=== PATIENT | male | born 1955 | race Caucasian/White ===

== ENCOUNTER 2017-08-08 06:47 | Emergency (ER) | payer BC ==
[2017-08-08] MEDS ORDERED: HYDROmorphone 1 MG/ML Syringe IVPUSH ONE ×2 (07:00→09:03)
[2017-08-08] MEDS ORDERED: Metoclopramide 10 MG/2 ML SDV IVPUSH ONE (07:00)
[2017-08-08] MEDS ORDERED: Sodium Chloride 0.9% 1,000 ML IV SCH (07:00)
--- NOTE | 2017-08-08 07:03 | EDM.PDOC ---
ED HPI GENERAL MEDICAL PROBLEM - General Chief Complaint: Abdominal Pain Stated Complaint: SEVERE ABDOMINAL PAIN Time Seen by Provider: 08/08/17 06:56 Source of Information: Reports: Patient History Limitations: Reports: No Limitations - History of Present Illness INITIAL COMMENTS - FREE TEXT/NARRATIVE: 61-year-old male presents to the ED with sudden onset of severe left lower abdominal pain starting 2 hours ago. Patient was already up for the day. He developed pain in the sudden onset of need to have a bowel movement of which he did have a small bowel movement with no blood. Pain however progression intensity at point that he could hardly walk. He has vomited twice of small amount of bilious material. He shouldn't underwent a laparotomy with removal of a large portion of his descending colon for diverticulitis about 2 years ago. He had a temporary colostomy for 3 months which has been subsequently re-burst. He has abdominal wall hernias at the sites of previous colostomy. Pain is described as sharp and stabbing and strongly colicky. Does not radiate through to his back. No history of kidney stones. Patient reports initial surgery was carried out at [place] . The colostomy let down and reanastomosis was done by Dr. Hoffman at [facility] in [place]. Onset: Today Onset Date: 08/08/17 Onset Time: 05:00 Duration: Hour(s): Location: Reports: Abdomen (Left lower quadrant of the abdomen) Quality: Reports: Sharp, Stabbing, Other Severity: Severe (Strongly colicky colicky) Improves with: Reports: None ( 10 out of 10) Worsens with: Reports: None Context: Denies: Activity, Exercise, Lifting, Sick Contact, Trauma, Other Associated Symptoms: Reports: Nausea/Vomiting (Has vomited twice small amount of bilious material. No blood). Denies: Confusion, Chest Pain, Cough, cough w sputum, Diaphoresis, Fever/Chills, Headaches, Loss of Appetite, Malaise, Rash, Seizure, Shortness of Breath, Syncope Treatments CLIENT SERVICE CONSULTANT: Reports: Other (see below) (None.) Left Abdomen Pain Score (Numeric/FACES): 10 - Related Data Allergies Allergy/AdvReac Type Severity Reaction Status Date / Time No Known Allergies Allergy Verified 08/08/17 06:52 Home Meds: Home Meds Ibuprofen 400 mg PO ONCALL PRN 08/08/17 [History] Past Medical History - Past Surgical History GI Surgical History: Reports: Other (See Below) (Laparotomy for removal of section of his colon due to diverticulitis with temporary colostomy 2 years ago. 3 months later he has colostomy was reversed he has developed abdominal wall hernias postoperatively. They have not given him any problems up until today.) Social & Family History - Living Situation & Occupation Living situation: Reports: Occupation: Employed ED ROS GENERAL - Review of Systems Review Of Systems: See Below Constitutional: Reports: No Symptoms HEENT: Reports: No Symptoms Respiratory: Reports: No Symptoms Cardiovascular: Reports: No Symptoms Endocrine: Reports: No Symptoms GI/Abdominal: Reports: Abdominal Pain, Distension (See history of present illness), Nausea, Vomiting : Reports: No Symptoms Musculoskeletal: Reports: Back Pain Skin: Reports: No Symptoms Neurological: Reports: No Symptoms (Intermittent positive low back pain) Psychiatric: Reports: No Symptoms ED EXAM, GI/ABD - Physical Exam Exam: See Below Exam Limited By: Physical Impairment (In severe pain. Initially examined with him at the bedside on his knees.) General Appearance: Alert, Severe Distress Eyes: Bilateral: Normal Appearance Throat/Mouth: Normal Inspection, Normal Lips, Normal Oropharynx Head: Atraumatic, Normocephalic Neck: Normal Inspection, Supple, Non-Tender, Full Range of Motion Respiratory/Chest: No Respiratory Distress, Lungs Clear, Normal Breath Sounds, No Accessory Muscle Use Cardiovascular: Normal Peripheral Pulses, Regular Rate, Rhythm, No Edema, No Murmur GI/Abdominal Exam: Abnormal Bowel Sounds (Hyperactive bowel sounds particularly over the hernia in the left lower quadrant of the abdomen.), Hernia (Abdominal hernia left lower quadrant which is firm palpation. There is an area of irritation over the hernia that is bleeding like a scratch type wound. There is firm to palpation and clinically has an incarcerated hernia or bowel obstruction.) Back Exam: Normal Inspection, Full Range of Motion. No: CVA Tenderness (L), CVA Tenderness (R) Extremities: Normal Inspection, Normal Range of Motion, Non-Tender, No Pedal Edema Neurological: Alert, Oriented, CN II-XII Intact, Normal Cognition, Normal Gait Psychiatric: Normal Affect, Normal Mood Skin Exam: Warm, Dry, Intact, Normal Color, No Rash EKG INTERPRETATION EKG Date: 08/08/17 Time: 07:35 Rhythm: NSR Rate (Beats/Min): 60 [place]: Normal P-Wave: Present QRS: Other (Incomplete right bundle branch block. Q-wave present in aVL with T- wave inversion nonspecific finding) ST-T: Normal QT: Prolonged (Moderately prolonged) EKG Interpretation Comments: Abnormal ECG. Course - Vital Signs Last Recorded V/S: Last Vital Signs Temp 35.3 C 08/08/17 06:53 Pulse 66 08/08/17 06:53 Resp 16 08/08/17 06:53 BP 172/117 H 08/08/17 06:53 Pulse Ox 96 08/08/17 06:53 - Orders/Labs/Meds Orders: Active Orders 24 hr Category Date Time Status EKG Documentation Completion [RC] STAT Care 08/08/17 07:00 Active Abdomen 1V Flat [CR] Stat Exams 08/08/17 07:00 Taken Abdomen Pelvis w Cont [CT] Stat Exams 08/08/17 07:37 Taken KETONES,BLOOD [CHEM] Stat Lab 08/08/17 08:23 Received LACTIC ACID [CHEM] Stat Lab 08/08/17 08:23 Received URINALYSIS W/MICROSCOPIC [UA W/MICROSCOPIC] [URIN] Stat Lab 08/08/17 08:55 Ordered Sodium Chloride 0.9% [Normal Saline] 1,000 ml Med 08/08/17 07:00 Active IV ASDIRECTED Sodium Chloride 0.9% [Normal Saline] 100 ml Med 08/08/17 07:45 Active IV ASDIRECTED Sodium Chloride 0.9% [Saline Flush] Med 08/08/17 07:45 Active 10 ml FLUSH ONETIME PRN Medication Orders Sodium Chloride (Normal Saline) 1,000 mls @ 999 mls/hr IV ASDIRECTED CHACHA Last Admin: 08/08/17 07:33 Dose: 500 mls/hr Sodium Chloride (Normal Saline) 100 mls @ 80 mls/hr IV ASDIRECTED CHACHA Last Admin: 08/08/17 08:40 Dose: 80 mls/hr Sodium Chloride (Saline Flush) 10 ml FLUSH ONETIME PRN PRN Reason: IV FLUSH Last Admin: 08/08/17 08:40 Dose: 10 ml Labs: Laboratory Tests 08/08/17 08/08/17 08/08/17 Range/Units 07:00 07:00 07:00 WBC 6.33 (4.23-9.07) K/mm3 RBC 5.71 (4.63-6.08) M/mm3 Hgb 16.2 (13.7-17.5) gm/L Hct 46.8 (40.1-51.0) % MCV 82.0 (79.0-92.2) fl MCH 28.4 (25.7-32.2) pg MCHC 34.6 (32.2-35.5) g/dl RDW Std Deviation 40.4 (35.1-43.9) fL Plt Count 199 (163-337) K/mm3 MPV 9.1 L (9.4-12.3) fl Neutrophils % (Manual) 60 (40-60) % Band Neutrophils % 1 (0-10) % Lymphocytes % (Manual) 34 (20-40) % Atypical Lymphs % 0 % Monocytes % (Manual) 0 L (2-10) % Eosinophils % (Manual) 3 (0.8-7.0) % Basophils % (Manual) 2 H (0.2-1.2) Platelet Estimate Adequate RBC Morph Comment Normal PT 9.8 (8.0-13.0) SECONDS INR 0.90 Sodium 140 (136-145) mEq/L Potassium 4.2 (3.5-5.1) mEq/L Chloride 102 (98-107) mEq/L Carbon Dioxide 24 (21-32) mEq/L Anion Gap 18.2 H (5-15) BUN 26 H (7-18) mg/dL Creatinine 1.6 H (0.7-1.3) mg/dL Est Cr Clr Drug Dosing 47.26 mL/min Estimated GFR (MDRD) 44 (>60) mL/min BUN/Creatinine Ratio 16.3 (14-18) Glucose 157 H (80-115) mg/dL Calcium 9.4 (8.5-10.1) mg/dL Total Bilirubin 0.7 (0.2-1.0) mg/dL AST 34 (15-37) U/L ALT 41 (16-63) U/L Alkaline Phosphatase 50 (46-116) U/L C-Reactive Protein 1.8 H* (<1.0) mg/dL Total Protein 7.8 (6.4-8.2) g/dl Albumin 4.2 (3.4-5.0) g/dl Globulin 3.6 gm/dL Albumin/Globulin Ratio 1.2 (1-2) Amylase 32 (25-115) U/L Meds: Medications Generic Name Dose Route Start Last Admin Trade Name Freq PRN Reason Stop Dose Admin Sodium Chloride 1,000 mls @ 999 mls/hr 08/08/17 07:00 08/08/17 07:33 Normal Saline IV 500 mls/hr ASDIRECTED CHACHA Administration Sodium Chloride 100 mls @ 80 mls/hr 08/08/17 07:45 08/08/17 08:40 Normal Saline IV 80 mls/hr ASDIRECTED CHACHA Administration Sodium Chloride 10 ml 08/08/17 07:45 08/08/17 08:40 Saline Flush FLUSH 10 ml ONETIME PRN Administration IV FLUSH Discontinued Medications Generic Name Dose Route Start Last Admin Trade Name Freq PRN Reason Stop Dose Admin Diatrizoate Meglum/Diatrizoate Sod 120 ml 08/08/17 07:45 08/08/17 08:40 Gastrografin 37% PO 08/08/17 07:46 90 ml ONETIME ONE Administration Hydromorphone HCl 1 mg 08/08/17 07:00 08/08/17 07:07 Dilaudid IVPUSH 08/08/17 07:01 1 mg ONETIME ONE Administration Iopamidol 100 ml 08/08/17 07:45 08/08/17 08:40 Isovue-300 (61%) IVPUSH 08/08/17 07:46 100 ml ONETIME ONE Administration Metoclopramide HCl 10 mg 08/08/17 07:00 08/08/17 07:09 Reglan IVPUSH 08/08/17 07:01 10 mg ONETIME ONE Administration - Radiology Interpretation Free Text/Narrative:: 61-year-old male presents the ED with acute onset of severe left lower quadrant abdominal pain. Pain is at the site of previous surgical resection of colon due to diverticulosis 2 years ago. He had a temporary colostomy in this area which was closed 3 months later. Subsequently his develop abdominal wall hernias in this area. Medically he has a large baseball size mass which is very firm and indurated left lower quadrant compatible with incarcerated hernia or bowel obstruction in this area. Patient appreciates the hernia states he usually able to get bowel back in if it source to bulge out quite badly at times Plan normal saline at 500 mils per hour. Loud 1 mg IV with Reglan 10 mg IV. Routine labs to include an amylase and CRP. Legs as well. One view of the abdomen to be obtained. and an ECG. - Re-Assessments/Exams Free Text/Narrative Re-Assessment/Exam: 08/08/17 07:23 pain is much better rates it now as a 2 or 3 out of 10 and is now tolerable. 08/08/17 07:38 KUB reveals a positive air throughout the entire bowel. There is no obvious obstruction. Peers this most likely is incarceration of bowel or omentum within abdominal wall hernia. CT of the abdomen and pelvis will be performed with oral and IV contrast. 08/08/17 08:05 White count is 6.33 with 60% neutrophils and 1% bands. Hemoglobin is 16.2. Hematocrit of 46.8. Platelet count 199,000. PT is 9.8. INR 0.90. Sodium 140 potassium 4.2. Chloride 102 bicarbonate 24. And a gap is markedly elevated 18.2. B1 is 26. Creatinine is 1.6. Glucose is 157. Liver function normal C-reactive protein 1.8. Amylase normal at 32. Will order serum acute ketones and lactic acid levels. 08/08/17 08:11 patient states his pain is still about a colicky component but he rates it as a 2-3 out of 10 compared to what it was. He is still massaging the area to try and get the hernia to resolve. He is drinking is oral contrast at this time. 08/08/17 08:28 patient has vomited up most of his oral contrast that he has drank. He will therefore have CT done with limited oral contrast in the GI tract. Serum lactic acid was 1.7. 08/08/17 08:52 CT of the abdomen with limited oral contrast reveals 2 abdominal wall hernias. The largest is to the left of the umbilicus and contains a large portion of omentum appears to have a large neck. By history the patient has been able to reduce his hernia many times in the past. There is also a hernia through the abdominal wall to the right of the umbilicus that contains portions of small bowel. This area is not tender at this time. I'm unable to reduce the hernia due to the patient's pain. I think he could get better served by definitive surgical management. He would prefer to travel to [place] for Dr. Hoffman has worked on him in the past. I will therefore try and make appropriate arrangements for transfer. At this time patient would travel by private vehicle with his daughter taking him versus an ambulance. 08/08/17 09:11 Dr. sharif is the surgeon refrigeration installer at [facility] in [place] but she is scrubbed in to the OR. Therefore I was deferred to the ER and spoke with Dr. Lopez who is accepting care. Patient will therefore travel to the ER first to be assessed and then the surgeon can see him in consultation. Given another milligram of Dilaudid IV prior to discharge with Zofran 4 mg IV for nausea relief. Departure - Departure Time of Disposition: 09:12 Disposition: DC/Tfer to Acute Hospital 02 Condition: Fair Clinical Impression: Incisional hernia of anterior abdominal wall with obstruction - Discharge Information Referrals: PCP,Not In Area [Primary Care Provider] - Forms: ED Department Discharge Additional Instructions: Nothing t0 eat or drink. Travel to [facility] in [facility] to the emergency department where he will be seen by emergency room physician and surgeon refrigeration installer. - My Orders Last 24 Hours: My Active Orders 08/08/17 07:00 EKG Documentation Completion [RC] STAT Abdomen 1V Flat [CR] Stat Sodium Chloride 0.9% [Normal Saline] 1,000 ml IV ASDIRECTED 08/08/17 07:37 Abdomen Pelvis w Cont [CT] Stat 08/08/17 07:45 Sodium Chloride 0.9% [Normal Saline] 100 ml IV ASDIRECTED Sodium Chloride 0.9% [Saline Flush] 10 ml FLUSH ONETIME PRN 08/08/17 08:23 KETONES,BLOOD [CHEM] Stat LACTIC ACID [CHEM] Stat 08/08/17 08:55 URINALYSIS W/MICROSCOPIC [UA W/MICROSCOPIC] [URIN] Stat - Assessment/Plan Last 24 Hours: My Active Orders 08/08/17 07:00 EKG Documentation Completion [RC] STAT Abdomen 1V Flat [CR] Stat Sodium Chloride 0.9% [Normal Saline] 1,000 ml IV ASDIRECTED 08/08/17 07:37 Abdomen Pelvis w Cont [CT] Stat 08/08/17 07:45 Sodium Chloride 0.9% [Normal Saline] 100 ml IV ASDIRECTED Sodium Chloride 0.9% [Saline Flush] 10 ml FLUSH ONETIME PRN 08/08/17 08:23 KETONES,BLOOD [CHEM] Stat LACTIC ACID [CHEM] Stat 08/08/17 08:55 URINALYSIS W/MICROSCOPIC [UA W/MICROSCOPIC] [URIN] Stat
[2017-08-08] MEDS ORDERED: Sodium Chloride 0.9% 100 ML IV SCH (07:45)
[2017-08-08] MEDS ORDERED: Iopamidol 612 MG/ML 100 ML Bottle IVPUSH ONE (07:45)
[2017-08-08] MEDS ORDERED: Diatrizoate Meglumine/Diatrizoate Sodium 37% 120 ML Bottle PO ONE (07:45)
[2017-08-08] MEDS ORDERED: Sodium Chloride 0.9% 10 ML Syringe FLUSH PRN (07:45)
[2017-08-08] MEDS ORDERED: Ondansetron 4 MG/2 ML SDV IVPUSH ONE (09:03)
--- NOTE | 2017-08-08 10:01 | CT ---
CT abdomen and pelvis Technique: Multiple axial sections were obtained from above the dome of the diaphragm inferiorly through the pubic symphysis. Intravenous contrast was utilized. Oral contrast is seen within proximal bowel. Delayed images were also obtained from the mid kidneys inferiorly through the pubic symphysis. Comparison: No previous CT exam. Findings: Small portion of the visualized lung bases shows a small subpleural nodule within the right middle lobe. This small subpleural nodule measures about 5.5 mm in size. Liver shows no focal parenchymal abnormality other than a small low density finding within the inferior right lobe measuring 5 mm. This is too small to characterize by Hounsfield unit measurements. Small low density abnormality is noted within the inferior spleen measuring 7 mm. No additional abnormality is seen within the spleen. Adrenal glands show no nodule. Contrast noted within the distal esophagus raising the possibility of gastroesophageal reflux. Kidneys show symmetric contrast enhancement without hydronephrosis or mass. Delayed images shows contrast within the ureters and within the bladder with no ureteral dilatation. Aorta shows atherosclerotic change. Distal aorta shows an aneurysm with AP dimension of 3.7 cm. Left common iliac artery also is aneurysmal at 3.3 cm. Atherosclerotic change and intramural thrombus is seen within the aorta and iliac vessels. Distal right common iliac artery also contains an aneurysm measuring 3.0 cm. Incidental prostate calcification is seen. Fat-containing left inguinal hernia is noted. Left anterior abdominal wall hernia is seen. This contains loops of small bowel. Smaller hernia is seen to the right of midline at the same level containing a loop of small bowel. There is a small bowel dilatation being seen and one or both of these abdominal wall herniations may be causing mild obstruction. Distal small bowel appears normal in size. No free fluid or inflammatory change is noted. Bone window settings were reviewed which shows diffuse disc space narrowing and vacuum phenomena at the L2-3 through L5-S1 levels. Impression: 1. Anterior abdominal wall hernias to the right and left of midline. Several loops of small bowel appear mildly prominent in size and difficult to exclude one or both hernias causing mild small bowel obstruction. 2. Abdominal aortic aneurysm at 3.7 cm. Both common iliac arteries show aneurysmal dilatation at 3.3 cm on the left and 3.0 cm on the right. 3. Small low density finding within the liver and spleen which is felt to be incidental. 4. Mild gastroesophageal reflux. 5. Small subpleural nodule within the right lung base. Recommend noncontrast chest CT in 9 months to further evaluate for stability. This follow-up would occur in April,. Diagnostic code #3
--- NOTE | 2017-08-08 11:35 | CR ---
Abdomen: Supine view of the abdomen was obtained. Comparison: No prior abdominal x-ray. Bowel gas pattern appears normal. No abnormal calcifications are seen. Mild arterial calcification is seen within the pelvis. Slight degenerative change is noted within the spine. Impression: 1. Incidental findings. Diagnostic code #2
== END 2017-08-08 09:20 ==
LOC: JD.ED 06:47
DX: K43.0 Incisional hernia with obstruction, without gangrene (principal)
CPT/HCPCS: 36415; 74000; 74177; 80053; 81001; 82009; 82150; 83605; 85025; 85610; 86140; 93005; 96361; 96374; 96375; 96376; 99285; J1170; J2405; J2765; J7030; J7040; J7050; Q9963; Q9967; 93010

== ENCOUNTER 2018-11-22 10:59 | Emergency (ER) | payer MEDICARE, BC ==
[2018-11-22] MEDS ORDERED: Nitroglycerin/D5W 25 MG/250 ML BOTTLE ONE (11:30)
[2018-11-22] MEDS ORDERED: Aspirin 81 MG Tab.Chew PO STA (11:36)
[2018-11-22] MEDS ORDERED: Metoprolol Tartrate 5 MG/5 ML SDV IVPUSH ONE ×3 (11:37→13:15)
--- NOTE | 2018-11-22 11:39 | EDM.PDOC ---
ED HPI GENERAL MEDICAL PROBLEM - General Chief Complaint: Chest Pain Stated Complaint: CHEST PAIN Time Seen by Provider: 11/22/18 11:11 Source of Information: Reports: Patient, RN Notes Reviewed History Limitations: Reports: No Limitations - History of Present Illness INITIAL COMMENTS - FREE TEXT/NARRATIVE: The patient states that he developed cold symptoms, including rhinorrhea and a cough productive of clear sputum, in early October. He did not have a fever. He took DayQuil and Tylenol which may or may not have helped. The patient states that 2-3 weeks ago he developed dyspnea on exertion and bilateral neck discomfort radiating to his central chest, when walking upstairs or to his mailbox. He thought his symptoms were just worsening cold symptoms. He describes the discomfort as a pressure/tightness/ache, that came on gradually with exertion and resolved with rest, however, it has been progressively getting worse, with less exertion. He denies associated nausea or diaphoresis, but may have associated sense of impending doom. He states that his stepson is on supplemental oxygen, which he tried for about one hour yesterday, without any change in his symptoms. Today, the patient states that he was going to [facility] to get some nicotine patches, but couldn't get out of his car due to his symptoms, therefore he went to the walk-in clinic, and they sent him here. The patient states that he has had dyspnea on exertion in the past, but no neck or chest discomfort prior to 2-3 weeks ago. The patient states that he has not had a prior medical evaluation for this. He last saw his PCP 3-4 months ago. The patient smokes half a pack of cigarettes per day since 1968, down from 1 pack of cigarettes per day. Because of his current symptoms, he is considering quitting. The patient states that he has a history of hypertension, for which he takes losartan with hydrochlorothiazide and Norvasc. He also takes a baby aspirin daily, including this morning. The patient reports a AAA repair in 2018. He also underwent a hemicolectomy for diverticulitis in 2014. The patient's PCP is Dr. Sánchez. Chest Pain Score (Numeric/FACES): 6 - Related Data Allergies Allergy/AdvReac Type Severity Reaction Status Date / Time No Known Allergies Allergy Verified 11/22/18 11:11 Home Meds: Home Meds Aspirin [Ecotrin] 81 mg PO DAILY 11/22/18 [History] Losartan/Hydrochlorothiazide [Losartan-HCTZ 100-12.5 MG] 1 tab PO DAILY [History] amLODIPine [Norvasc] 5 mg PO DAILY 11/22/18 [History] Past Medical History HEENT History: Reports: Other (See Below) Other HEENT History: upper denture Cardiovascular History: Reports: High Cholesterol (untreated), Hypertension Gastrointestinal History: Reports: Diverticulosis (diverticulitis) Genitourinary History: Reports: BPH (untreated), Chronic Renal Insuffiency Musculoskeletal History: Reports: Back Pain, Chronic Endocrine/Metabolic History: Reports: Obesity/BMI 30+ - Infectious Disease History Infectious Disease History: Reports: Chicken Pox, Measles, Mumps - Past Surgical History HEENT Surgical History: Reports: Myringotomy w Tube(s) (left) Cardiovascular Surgical History: Reports: AAA Repair (graft, early 2017) GI Surgical History: Reports: Colon (Descending hemicolectomy for diverticulitis , 2014), Hernia, Abdominal (incisional, 2014) Musculoskeletal Surgical History: Reports: Carpal Tunnel (left) Social & Family History - Tobacco Use Smoking Status *Q: Current Every Day Smoker Years of Tobacco use: 50 Packs/Tins Daily: 0.5 Packs/Tins Daily Comment: Down from 1 ppd - Caffeine Use Caffeine Use: Reports: Soda - Alcohol Use Alcohol Use History: No - Recreational Drug Use Recreational Drug Use: No - Living Situation & Occupation Living situation: Reports: , with Spouse Occupation: Retired ED ROS GENERAL - Review of Systems Review Of Systems: ROS reveals no pertinent complaints other than HPI. ED EXAM, GENERAL - Physical Exam Exam: See Below Exam Limited By: No Limitations General Appearance: Alert, WD/WN, Mild Distress (Appears uncomfortable) Eye Exam: Bilateral Eye: EOMI, Normal Inspection Ears: Normal External Exam, Hearing Grossly Normal Nose: Normal Inspection Throat/Mouth: Normal Inspection, Normal Lips, Normal Voice, No Airway Compromise Head: Atraumatic, Normocephalic Neck: Normal Inspection, Full Range of Motion Respiratory/Chest: No Respiratory Distress, Lungs Clear, Normal Breath Sounds, No Accessory Muscle Use Cardiovascular: Normal Peripheral Pulses, Regular Rate, Rhythm, No Edema, No Gallop, No JVD, No Murmur, No Rub Peripheral Pulses: 4+: Radial (L), Radial (R) GI/Abdominal: Normal Bowel Sounds, Soft, Non-Tender, No Organomegaly, No Distention, No Abnormal Bruit, No Mass, Other (Obese) (Male) Exam: Deferred Rectal (Males) Exam: Deferred Back Exam: Normal Inspection, Full Range of Motion, NT Extremities: Normal Inspection, Normal Range of Motion, No Pedal Edema, Normal Capillary Refill Neurological: Alert, Oriented, Normal Cognition, No Motor/Sensory Deficits Psychiatric: Normal Affect Skin Exam: Warm, Dry, Intact, Normal Color, No Rash EKG INTERPRETATION EKG Date: 11/22/18 Time: 11:05 Rhythm: NSR (Single PVC) Rate (Beats/Min): 89 [place]: Normal P-Wave: Enlarged (likely biatrial) QRS: Normal (Early transition) ST-T: Normal QT: Prolonged (QTc 497 ms) Comparison: No Change (08/08/2017) Course - Vital Signs Last Recorded V/S: Last Vital Signs Temp 36.8 C 11/22/18 11:05 Pulse 95 11/22/18 13:29 Resp 22 H 11/22/18 11:05 BP 145/82 H 11/22/18 13:29 Pulse Ox 97 11/22/18 11:05 - Orders/Labs/Meds Orders: Active Orders 24 hr Category Date Time Status EKG Documentation Completion [RC] STAT Care 11/22/18 11:34 Active Heparin Sodium/D5W [Heparin 25,000 Units in D5W 500 ML] Med 11/22/18 12:00 Active 25,000 units in 500 ml IV TITRATE Nitroglycerin/D5W [Nitroglycerin 25 MG/D5W 250 ML] Med 11/22/18 11:45 Active 25 mg in 250 ml IV TITRATE Medication Orders Nitroglycerin/Dextrose (Nitroglycerin 25 Mg/D5w 250 Ml) 25 mg in 250 mls @ 3 mls/hr IV TITRATE CHACHA; Protocol Last Admin: 11/22/18 11:46 Dose: 5 mcg/min, 3 mls/hr Heparin Sodium/Dextrose (Heparin 25,000 Units In D5w 500 Ml) 25,000 units in 500 mls @ 22.32 mls/hr IV TITRATE CHACHA; Protocol Last Admin: 11/22/18 12:18 Dose: 12 units/kg/hr, 22.32 mls/hr Labs: Laboratory Tests 11/22/18 11/22/18 11/22/18 Range/Units 11:07 11:07 11:07 WBC 7.12 (4.23-9.07) K/mm3 RBC 5.48 (4.63-6.08) M/mm3 Hgb 15.7 (13.7-17.5) gm/L Hct 46.3 (40.1-51.0) % MCV 84.5 (79.0-92.2) fl MCH 28.6 (25.7-32.2) pg MCHC 33.9 (32.2-35.5) g/dl RDW Std Deviation 41.5 (35.1-43.9) fL Plt Count 257 (163-337) K/mm3 MPV 8.6 L (9.4-12.3) fl Neutrophils % (Manual) 51 (40-60) % Band Neutrophils % 0 (0-10) % Lymphocytes % (Manual) 36 (20-40) % Atypical Lymphs % 0 % Monocytes % (Manual) 6 (2-10) % Eosinophils % (Manual) 7 (0.8-7.0) % Basophils % (Manual) 0 L (0.2-1.2) Platelet Estimate Adequate RBC Morph Comment Normal PT 9.8 (9.5-12.1) SECONDS INR < 0.93 APTT 27 (24-31) SECONDS D-Dimer, Quantitative 1.89 H (0.19-0.50) mg/L Sodium 134 L (136-145) mEq/L Potassium 3.5 (3.5-5.1) mEq/L Chloride 96 L (98-107) mEq/L Carbon Dioxide 27 (21-32) mEq/L Anion Gap 14.5 (5-15) BUN 20 H (7-18) mg/dL Creatinine 2.0 H (0.7-1.3) mg/dL Est Cr Clr Drug Dosing TNP Estimated GFR (MDRD) 34 (>60) mL/min BUN/Creatinine Ratio 10.0 L (14-18) Glucose 124 H (80-115) mg/dL Calcium 9.3 (8.5-10.1) mg/dL Total Bilirubin 0.5 (0.2-1.0) mg/dL AST 19 (15-37) U/L ALT 25 (16-63) U/L Alkaline Phosphatase 62 (46-116) U/L Troponin I 0.147 H* (0.00-0.056) ng/mL NT-Pro-B Natriuret Pep (0-125) pg/mL Total Protein 8.3 H (6.4-8.2) g/dl Albumin 4.3 (3.4-5.0) g/dl Globulin 4.0 gm/dL Albumin/Globulin Ratio 1.1 (1-2) 11/22/18 Range/Units 11:07 WBC (4.23-9.07) K/mm3 RBC (4.63-6.08) M/mm3 Hgb (13.7-17.5) gm/L Hct (40.1-51.0) % MCV (79.0-92.2) fl MCH (25.7-32.2) pg MCHC (32.2-35.5) g/dl RDW Std Deviation (35.1-43.9) fL Plt Count (163-337) K/mm3 MPV (9.4-12.3) fl Neutrophils % (Manual) (40-60) % Band Neutrophils % (0-10) % Lymphocytes % (Manual) (20-40) % Atypical Lymphs % % Monocytes % (Manual) (2-10) % Eosinophils % (Manual) (0.8-7.0) % Basophils % (Manual) (0.2-1.2) Platelet Estimate RBC Morph Comment PT (9.5-12.1) SECONDS INR APTT (24-31) SECONDS D-Dimer, Quantitative (0.19-0.50) mg/L Sodium (136-145) mEq/L Potassium (3.5-5.1) mEq/L Chloride (98-107) mEq/L Carbon Dioxide (21-32) mEq/L Anion Gap (5-15) BUN (7-18) mg/dL Creatinine (0.7-1.3) mg/dL Est Cr Clr Drug Dosing Estimated GFR (MDRD) (>60) mL/min BUN/Creatinine Ratio (14-18) Glucose (80-115) mg/dL Calcium (8.5-10.1) mg/dL Total Bilirubin (0.2-1.0) mg/dL AST (15-37) U/L ALT (16-63) U/L Alkaline Phosphatase (46-116) U/L Troponin I (0.00-0.056) ng/mL NT-Pro-B Natriuret Pep 230 H (0-125) pg/mL Total Protein (6.4-8.2) g/dl Albumin (3.4-5.0) g/dl Globulin gm/dL Albumin/Globulin Ratio (1-2) Meds: Medications Generic Name Dose Route Start Last Admin Trade Name Freq PRN Reason Stop Dose Admin Nitroglycerin/Dextrose 25 mg in 250 mls @ 3 mls/hr 11/22/18 11:45 11/22/18 11 :46 Nitroglycerin 25 Mg/D5w 250 Ml IV 5 mcg/min TITRATE CHACHA 3 mls/hr Administration Protocol 5 MCG/MIN Heparin Sodium/Dextrose 25,000 units in 500 mls @ 22.32 mls/hr 11/22/18 12:00 11/22/18 12:18 Heparin 25,000 Units In D5w 500 Ml IV 12 units/kg/hr TITRATE CHACHA 22.32 mls/hr Administration Protocol 12 UNITS/KG/HR Discontinued Medications Generic Name Dose Route Start Last Admin Trade Name Freq PRN Reason Stop Dose Admin Aspirin 243 mg 11/22/18 11:36 11/22/18 11:41 Aspirin PO 11/22/18 11:37 243 mg ONETIME STA Administration Heparin Sodium (Porcine) Confirm 11/22/18 12:01 11/22/18 12:23 Heparin Sodium Administered 11/22/18 12:02 Not Given Dose 5,000 units .ROUTE .STK-MED ONE Heparin Sodium (Porcine) 4,000 units 11/22/18 12:15 11/22/18 12:17 Heparin Sodium IV 11/22/18 12:16 4,000 units ONETIME ONE Administration Nitroglycerin/Dextrose Confirm 11/22/18 11:30 11/22/18 11:46 Nitroglycerin 25 Mg/D5w 250 Ml Administered 11/22/18 11:31 Not Given Dose 25 mg in 250 mls @ as directed .ROUTE .STK-MED ONE Heparin Sodium/Dextrose Confirm 11/22/18 12:02 11/22/18 12:23 Heparin 25,000 Units In D5w 500 Ml Administered 11/22/18 12:03 Not Given Dose 500 mls @ as directed .ROUTE .STK-MED ONE Metoprolol Tartrate 5 mg 11/22/18 11:37 11/22/18 11:41 Lopressor IVPUSH 11/22/18 11:38 5 mg ONETIME ONE Administration Metoprolol Tartrate 5 mg 11/22/18 12:26 11/22/18 12:34 Lopressor IVPUSH 11/22/18 12:27 5 mg ONETIME ONE Administration Metoprolol Tartrate 5 mg 11/22/18 13:15 11/22/18 13:29 Lopressor IVPUSH 11/22/18 13:16 5 mg ONETIME ONE Administration Simvastatin 80 mg 11/22/18 11:40 Zocor PO 11/22/18 11:41 BEDTIME STA Simvastatin 40 mg 11/22/18 11:51 11/22/18 11:54 Zocor PO 11/22/18 11:52 40 mg ONETIME STA Administration - Re-Assessments/Exams Free Text/Narrative Re-Assessment/Exam: 11/22/18 11:37 Despite no ischemic changes in the patient's ECG, there is no question but that the patient's symptoms of bilateral neck pain radiating to his chest, along with dyspnea on exertion, is cardiac in etiology. I have ordered 5 mg of IV Lopressor, 243 mg of baby aspirin (the patient already took 81 mg this morning) , and 80 mg simvastatin. Because the patient is still suffering from some neck and chest discomfort at this time, I have ordered a nitroglycerin drip, to start at 5 mcg/min, that we can titrate. 11/22/18 11:55 Case discussed with Mary at [facility] at 11:43. Case then discussed with Dr. Alcantar, Licensed Practical Vocational Nurse at [facility], at 11:46. He agreed that the patient's symptoms are almost certainly anginal. He agreed with my orders for aspirin, Lopressor, and nitroglycerin, however, he recommended that I give only 40 mg of simvastatin. He recommended that I start a heparin drip. He did not want me to start Plavix. He recommended that the patient be admitted to the Hospitalist. Case then discussed with Dr. Lopez, Hospitalist at [facility], at 11: 52. He did not want to accept the patient to his service for knowing the troponin results. I am to call them back with that result. I have ordered heparin 4000 unit bolus, to be followed by 12 units/kg/hr gtt, per non-STEMI protocol. Portable chest radiograph reviewed. The cardiac silhouette is within normal limits. No pulmonary vascular congestion. No pleural effusions. No focal infiltrate. No pneumothorax. Formal read per the radiologist pending. Portable chest x-ray image pushed to [facility] at 11:55. 11/22/18 12:10 The patient's troponin returned elevated at 0.147. The patient's D-dimer returned elevated at 1.89, however, because the patient is already on a heparin drip, I am not going to pursue a pulmonary embolus at this time. The patient's CBC is unremarkable. The patient's CMP, coags, and BNP are still pending. Case discussed again with Mary at [facility] at 12:05. Case discussed again with Dr. Lopez at 12:05. He accepted the patient for transfer to telemetry. Given the elevated troponin, if Dr. Alcantar planned to take the patient to the [facility], I would fly him to [place], but if not, I would transfer by ground ambulance. Mary contacted Dr. Alcantar, who did not intend to take the patient to the [facility] immediately. I will therefore transfer the patient by ground ambulance. 11/22/18 12:48 The patient's CMP reveals a BUN/Cr of 20/2.0. His prior Cr, from 08/08/2017, was 1.6, indicating that he has chronic renal insufficiency. I have updated his PMHx. The patient's coags are within normal limits. His BNP is unremarkable. 11/22/18 13:05 Unfortunately, no ambulances are available to transport the patient, therefore the patient will have to go by helicopter. 11/22/18 13:16 The patient will be given a third dose of Lopressor 5 mg IVP prior to leaving the ED. Departure - Departure Time of Disposition: 12:10 Disposition: DC/Tfer to Acute Hospital 02 Reason for Transfer *Q: Other Condition: Fair Clinical Impression: Non-ST elevated myocardial infarction (non-STEMI), Elevated d-dimer, Chronic renal insufficiency Referrals: John Sánchez MD [Primary Care Provider] - Sudhakar Alcantar MD [Ordering Only Provider] - Forms: ED Department Discharge - My Orders Last 24 Hours: My Active Orders 11/22/18 11:34 EKG Documentation Completion [RC] STAT 11/22/18 11:45 Nitroglycerin/D5W [Nitroglycerin 25 MG/D5W 250 ML] 25 mg in 250 ml IV TITRATE 11/22/18 12:00 Heparin Sodium/D5W [Heparin 25,000 Units in D5W 500 ML] 25,000 units in 500 ml IV TITRATE - Assessment/Plan Last 24 Hours: My Active Orders 11/22/18 11:34 EKG Documentation Completion [RC] STAT 11/22/18 11:45 Nitroglycerin/D5W [Nitroglycerin 25 MG/D5W 250 ML] 25 mg in 250 ml IV TITRATE 11/22/18 12:00 Heparin Sodium/D5W [Heparin 25,000 Units in D5W 500 ML] 25,000 units in 500 ml IV TITRATE
[2018-11-22] MEDS ORDERED: Simvastatin 40 MG Tab PO STA ×2 (11:40→11:51)
[2018-11-22] MEDS ORDERED: Nitroglycerin/D5W 25 MG/250 ML BOTTLE IV SCH (11:45)
[2018-11-22] MEDS ORDERED: Heparin Sodium/D5W 25,000 UNITS/500 ML BAG IV SCH (12:00)
[2018-11-22] MEDS ORDERED: Heparin Sodium 5,000 Units/ML Vial ONE (12:01)
[2018-11-22] MEDS ORDERED: Heparin Sodium/D5W 500 ML ONE (12:02)
[2018-11-22] MEDS ORDERED: Heparin Sodium 5,000 Units/ML Vial IV ONE (12:15)
--- NOTE | 2018-11-22 12:34 | CR ---
Chest: Frontal view of the chest was obtained utilizing portable technique. Comparison: No prior chest x-ray. Heart size is normal. Tortuous thoracic aorta is seen. Very slight atelectasis or scarring within the left base is noted. Lungs otherwise are clear. Bony structures are grossly intact. Impression: 1. Incidental findings. Nothing acute is seen. Diagnostic code #2
== END 2018-11-22 14:00 ==
LOC: JD.ED 10:59
DX: I21.4 Non-ST elevation (NSTEMI) myocardial infarction (principal); R79.1 Abnormal coagulation profile; I12.9 Hypertensive chronic kidney disease with stage 1 through stage 4 chronic kidney disease, or unspecified chronic kidney disease; N18.9 Chronic kidney disease, unspecified; F17.210 Nicotine dependence, cigarettes, uncomplicated; Z79.82 Long term (current) use of aspirin; Z79.899 Other long term (current) drug therapy
CPT/HCPCS: 36415; 71045; 80053; 83880; 84484; 85007; 85027; 85379; 85610; 85730; 93005; 96365; 96366; 96368; 96374; 96375; 96376; 99285; A9270; J1644; J3490; 93010

== ENCOUNTER 2019-11-17 17:15 | Emergency (ER) | payer MEDICARE, BC ==
--- NOTE | 2019-11-17 18:13 | EDM.PDOC ---
ED HPI GENERAL MEDICAL PROBLEM - General Chief Complaint: Abdominal Pain Stated Complaint: SENT BY DR SÁNCHEZ Time Seen by Provider: 11/17/19 17:38 Source of Information: Reports: Patient, RN Notes Reviewed History Limitations: Reports: No Limitations - History of Present Illness INITIAL COMMENTS - FREE TEXT/NARRATIVE: Patient is a 64-year-old male who presents to the ED for the evaluation of his hernia. The patient was evaluated by his primary care provider, Dr. Sánchez, and he had an abdomen pelvis CT without IV contrast that demonstrated a possible incarcerated hernia. The patient states that he has had this hernia for quite some time, and it is normally reducible. He does not remember if Dr. Sánchez try to reduce the hernia at this point or not. CT report demonstrates multiple loops of small bowel in the left lower quadrant hernia, with mild stranding with the involved mesentery. Patient does have a history of an aortobiiliac stent graft, he thinks that this was done in the summer of 2017. He notes this was done by a provider at [facility] in [place]. Patient is hemodynamically stable at time of exam in triage, his blood work demonstrates only a mildly low potassium at 2.7 at this time. Patient states he is not having any sort of nausea or vomiting, he states he has not had much of an appetite for a while. He states that he last took Tylenol at around 12 PM, he did not eat anything today, he states his last meal was yesterday. Patient states that he can still have bowel movements, and his last bowel movement was this morning. Patient notes that the hernia itself is tender to touch but not overly painful. Abdomen Pain Score (Numeric/FACES): 3 - Related Data Allergies Allergy/AdvReac Type Severity Reaction Status Date / Time No Known Allergies Allergy Verified 11/17/19 17:40 Home Meds: Home Meds Aspirin [Ecotrin EC] 81 mg PO DAILY 11/22/18 [History] Chlorthalidone 25 mg PO DAILY 11/17/19 [History] Clopidogrel [Plavix] 75 mg PO DAILY 11/17/19 [History] Metoprolol Succinate [Toprol XL] 12.5 mg PO DAILY 11/17/19 [History] Nitroglycerin [Nitrostat] 0.4 mg SL ASDIRECTED PRN 11/17/19 [History] amLODIPine Besylate [Amlodipine Besylate] 10 mg PO DAILY 11/17/19 [History] atorvaSTATin [Lipitor] 40 mg PO BEDTIME 11/17/19 [History] traMADol [Ultram] 50 mg PO Q6H PRN #12 tab 11/17/19 [Rx] Past Medical History HEENT History: Reports: Other (See Below) Other HEENT History: upper denture Cardiovascular History: Reports: High Cholesterol, Hypertension Gastrointestinal History: Reports: Diverticulosis Genitourinary History: Reports: BPH, Chronic Renal Insuffiency Musculoskeletal History: Reports: Back Pain, Chronic Endocrine/Metabolic History: Reports: Obesity/BMI 30+ - Infectious Disease History Infectious Disease History: Reports: Chicken Pox, Measles, Mumps - Past Surgical History HEENT Surgical History: Reports: Myringotomy w Tube(s) Cardiovascular Surgical History: Reports: AAA Repair (Summer 2017) GI Surgical History: Reports: Colon, Hernia, Abdominal Musculoskeletal Surgical History: Reports: Carpal Tunnel Social & Family History - Tobacco Use Smoking Status *Q: Current Every Day Smoker Years of Tobacco use: 50 Packs/Tins Daily: 0.5 - Caffeine Use Caffeine Use: Reports: Soda - Recreational Drug Use Recreational Drug Use: No - Living Situation & Occupation Living situation: Reports: , with Spouse Occupation: Retired ED ROS GENERAL - Review of Systems Review Of Systems: See Below Constitutional: Denies: Fever, Chills Respiratory: Denies: Shortness of Breath, Cough Cardiovascular: Denies: Chest Pain GI/Abdominal: Reports: Abdominal Pain (Left lower abdomen over hernia), Flatus. Denies: Constipation, Diarrhea, Nausea, Vomiting ED EXAM, GI/ABD - Physical Exam Exam: See Below Exam Limited By: No Limitations General Appearance: Alert, WD/WN, No Apparent Distress Eyes: Bilateral: Normal Appearance Ears: Normal External Exam Nose: Normal Inspection Throat/Mouth: Normal Inspection, Normal Lips, Normal Teeth, Normal Gums, Normal Oropharynx, Normal Voice, No Airway Compromise Head: Atraumatic, Normocephalic Neck: Normal Inspection Respiratory/Chest: No Respiratory Distress, Lungs Clear, Normal Breath Sounds, No Accessory Muscle Use, Chest Non-Tender Cardiovascular: Normal Peripheral Pulses, Regular Rate, Rhythm, No Edema, No Murmur GI/Abdominal Exam: Normal Bowel Sounds, Soft, No Distention, No Mass, Hernia ( Left lower quadrant, the area is tender, but not overly painful) Extremities: Normal Inspection, Normal Capillary Refill Neurological: Alert, Oriented, Normal Cognition, No Motor/Sensory Deficits Psychiatric: Normal Affect, Normal Mood Skin Exam: Warm, Dry, Intact, Normal Color, No Rash EKG INTERPRETATION EKG Date: 11/17/19 Time: 19:40 Rhythm: NSR Rate (Beats/Min): 68 [place]: Normal P-Wave: Present QRS: RBBB ST-T: Normal QT: Normal Comparison: NA - No Prior EKG EKG Interpretation Comments: no acute ischemic change, reviewed by myself and Dr. Cabello. Course - Vital Signs Last Recorded V/S: Last Vital Signs Temp 99.1 F 11/17/19 17:37 Pulse 81 11/17/19 17:37 Resp 16 11/17/19 17:37 BP 176/102 H 11/17/19 17:37 Pulse Ox 95 11/17/19 17:37 - Orders/Labs/Meds Orders: Active Orders 24 hr Category Date Time Status EKG Documentation Completion [RC] STAT Care 11/17/19 18:48 Active Notify Provider Consults [RC] ASDIRECTED Care 11/17/19 18:13 Active Consult to Physician [CONS] Stat Cons 11/17/19 18:13 Active Chest 2V [CR] Stat Exams 11/17/19 18:48 Taken Meds: Medications Discontinued Medications Generic Name Dose Route Start Last Admin Trade Name Lissy PRN Reason Stop Dose Admin Potassium Chloride 40 meq 11/17/19 19:43 11/17/19 20:00 Klor-Con M20 PO 11/17/19 19:44 40 meq ONETIME ONE Administration Potassium Chloride 40 meq 11/17/19 19:43 11/17/19 20:00 Klor-Con M20 PO 11/17/19 19:44 40 meq ONETIME ONE Administration Tramadol HCl 50 mg 11/17/19 19:41 11/17/19 20:00 Ultram PO 11/17/19 19:42 50 mg ONETIME ONE Administration - Re-Assessments/Exams Free Text/Narrative Re-Assessment/Exam: 11/17/19 18:17 Patient presents to the ED for the evaluation of his hernia. I have called Dr. Marquez for evaluation. He will be in to see the patient and assess him to see if he would be a comfortable doing this at this facility versus sending him to [place] for repair. The patient himself would prefer to stay here if possible. 11/17/19 18:49 Dr. Marquez was in to evaluate the patient and will try to wait to do an outpatient repair next week, will have the patient hold his Plavix and aspirin. He did request that an EKG and Chest x-ray be obtained for pre-op purposes and did go over strict return precautions with the patient. 11/17/19 19:43 Review the patient's lab show that he was mildly hypokalemic at 2.7. 40 mEq potassium will be given orally in the ER, and another dose will be given to take at home tomorrow for further supplementation. Patient's chest x-ray is done and does not demonstrate any sort of consolidation or infiltrate, official radiology read is pending however. Patient was having a mild amount of abdominal pain after Dr. Marquez assessed him. He states that he gets pretty good relief from tramadol. I did order this for pain relief, and will give the patient a few tabs of this to take in case his pain is not relieved by Tylenol alone. Patient states he will try only to take Tylenol if at all possible, as he was given strict instructions by Dr. Marquez to not blunt the pain too much. Departure - Departure Time of Disposition: 19:00 Disposition: Home, Self-Care 01 Condition: Fair Clinical Impression: Abdominal wall hernia, Hypokalemia - Discharge Information *PRESCRIPTION DRUG MONITORING PROGRAM REVIEWED*: Yes *COPY OF PRESCRIPTION DRUG MONITORING REPORT IN PATIENT SANDEEP: No Prescriptions: traMADol [Ultram] 50 mg PO Q6H PRN #12 tab PRN Reason: Pain Instructions: Hernia, Adult, Hypokalemia, Potassium Content of Foods Referrals: John Sánchez MD [Primary Care Provider] - Forms: ED Department Discharge Additional Instructions: You were evaluated in the ER today regarding your abdominal hernia. Our surgeon, Dr. Lance Marquez was consulted on your case, and he did come up with a plan for you, you will likely have surgery next week. Your laboratory evaluation demonstrated that your potassium was mildly low, you were given 40 mEq p.o. in the ER, and another 40 mEq to take tomorrow morning for further supplementation. This should get back to normal, when you resume a normal diet. You were given an educational handout on the potassium content of foods, please try to include some of these in your diet to help get your potassium level back to normal. He wants you to hold your Plavix and aspirin, until he can get you scheduled for surgery. Please follow all of the recommendations set forth by Dr. Marquez, if you have any questions regarding such, you may call [phone] Marquez 's nurse. You may take 500-1000 mg Tylenol every 6 hours. Do not exceed 4000 mg Tylenol in a 24-hour time span. You were given a prescription for tramadol, please take 1 tablet as needed every 6 hours for pain not relieved by Tylenol alone. If you should need to take the tramadol, highly recommend you take a stool softener like MiraLAX on a daily basis to help prevent constipation. Please return to the ER at any time if symptoms change or worsen. Sepsis Event Note - Evaluation Sepsis Screening Result: No Definite Risk - Focused Exam Vital Signs: Vital Signs Temp Pulse Resp BP Pulse Ox 11/17/19 17:37 99.1 F 81 16 176/102 H 95 Date Exam was Performed: 11/17/19 Time Exam was Performed: 22:24 - My Orders Last 24 Hours: My Active Orders 11/17/19 18:13 Notify Provider Consults [RC] ASDIRECTED Consult to Physician [CONS] Stat 11/17/19 18:48 EKG Documentation Completion [RC] STAT Chest 2V [CR] Stat - Assessment/Plan Last 24 Hours: My Active Orders 11/17/19 18:13 Notify Provider Consults [RC] ASDIRECTED Consult to Physician [CONS] Stat 11/17/19 18:48 EKG Documentation Completion [RC] STAT Chest 2V [CR] Stat
--- NOTE | 2019-11-17 19:02 | PCM.CONS ---
H&P History of Present Illness - General Date of Service: 11/17/19 Source of Information: Patient History Limitations: Reports: No Limitations - History of Present Illness Onset of Symptoms: Reports: Gradual Location: Reports: Abdomen Other HPI/Comments: Mr. Vance is a 64 yo man presenting with an incarcerated incisional hernia at prior colostomy site. He has had the hernia for well over a year, and occasionally has associated pain but is usually able to manually reduce the hernia. He saw his primary doctor at [facility] today and was sent for CT imaging and surgical evaluation in the emergency department given concern for incarceration and possible strangulation. The patient rates his pain as mild and denies associated nausea, vomiting, or obstipation. He is a smoker, and has a history of perforated diverticulitis about 3 years ago for which he had a Ynes procedure and subsequent colostomy takedown in [place]. Two years ago, he underwent endovascular AAA repair. He has a history of angina and has had cardiac catheterization without stent placement; at the time, he was told he had complete occlusion of one coronary branch and about 60 % stenosis of another. He was started on aspirin and plavix, which he currently takes. He denies dyspnea or chest pain when walking up one flight of stairs or walking a distance of 100 yards. He was evaluated in the emergency room in 2017 for a strangulated right paramedian incisional hernia, for which he was flown to [place] for emergency surgical treatment. He reports mesh repair via his infraumbilical midline incision at that time. Abdomen Pain Score (Numeric/FACES): 3 - Related Data Allergies/Adverse Reactions: Allergies Allergy/AdvReac Type Severity Reaction Status Date / Time No Known Allergies Allergy Verified 11/17/19 17:40 Home Medications: Home Meds Aspirin [Ecotrin EC] 81 mg PO DAILY 11/22/18 [History] Chlorthalidone 25 mg PO DAILY 11/17/19 [History] Clopidogrel [Plavix] 75 mg PO DAILY 11/17/19 [History] Metoprolol Succinate [Toprol XL] 12.5 mg PO DAILY 11/17/19 [History] Nitroglycerin [Nitrostat] 0.4 mg SL ASDIRECTED PRN 11/17/19 [History] amLODIPine Besylate [Amlodipine Besylate] 10 mg PO DAILY 04/06/20 [History] atorvaSTATin [Lipitor] 40 mg PO BEDTIME 11/17/19 [History] Past Medical History HEENT History: Reports: Other (See Below) Other HEENT History: upper denture Cardiovascular History: Reports: High Cholesterol, Hypertension Gastrointestinal History: Reports: Diverticulosis Genitourinary History: Reports: BPH, Chronic Renal Insuffiency Musculoskeletal History: Reports: Back Pain, Chronic Endocrine/Metabolic History: Reports: Obesity/BMI 30+ - Infectious Disease History Infectious Disease History: Reports: Chicken Pox, Measles, Mumps - Past Surgical History HEENT Surgical History: Reports: Myringotomy w Tube(s) Cardiovascular Surgical History: Reports: AAA Repair (Summer 2017) GI Surgical History: Reports: Colon, Hernia, Abdominal Musculoskeletal Surgical History: Reports: Carpal Tunnel Social & Family History - Tobacco Use Smoking Status *Q: Current Every Day Smoker Years of Tobacco use: 50 Packs/Tins Daily: 0.5 - Caffeine Use Caffeine Use: Reports: Soda - Recreational Drug Use Recreational Drug Use: No - Living Situation & Occupation Living situation: Reports: , with Spouse Occupation: Retired H&P Review of Systems - Review of Systems: Review Of Systems: See Below General: Reports: Decreased Appetite HEENT: Reports: No Symptoms Pulmonary: Reports: Cough Cardiovascular: Reports: No Symptoms Gastrointestinal: Reports: Abdominal Pain, Other (LLQ incisional hernia) Genitourinary: Reports: No Symptoms Musculoskeletal: Reports: No Symptoms Skin: Reports: No Symptoms Psychiatric: Reports: No Symptoms Neurological: Reports: No Symptoms Hematologic/Lymphatic: Reports: Easy Bleeding Immunologic: Reports: No Symptoms Exam - Exam Exam: See Below - Vital Signs Vital Signs: Last Vital Signs Temp 37.3 C 11/17/19 17:37 Pulse 81 11/17/19 17:37 Resp 16 11/17/19 17:37 BP 176/102 H 11/17/19 17:37 Pulse Ox 95 11/17/19 17:37 Weight: 92.533 kg - Exam General: Alert, Oriented, Cooperative HEENT: Conjunctiva Clear Neck: Supple, Trachea Midline Lungs: Rales Cardiovascular: Regular Rate, Regular Rhythm GI/Abdominal Exam: Soft, Other (large left sided incisional hernia corresponding to prior colostomy site, minimally tender, partially reducible. Healed infraumbilical midline incision without evidence of hernia. ) Extremities: Normal Inspection Skin: Warm, Dry, Intact Neuro Extensive - Mental Status: Normal Mood/Affect Psychiatric: Alert, Normal Affect, Normal Mood Sepsis Event Note - Evaluation Sepsis Screening Result: No Definite Risk - Focused Exam Vital Signs: Vital Signs Temp Pulse Resp BP Pulse Ox 11/17/19 17:37 37.3 C 81 16 176/102 H 95 Date Exam was Performed: 11/17/19 Time Exam was Performed: 19:02 *Q Meaningful Use (ADM) - VTE Risk Assess *Q Each Risk Factor Represents 2 Points: Age 60 - 74 Years, Major surgery greater than 45 minutes Total Score 2 Point Risk Factors: 4 Consult PN Assessment/Plan Procedures: Procedures ASSAY OF AMYLASE (08/08/17) ASSAY OF LACTIC ACID (08/08/17) ASSAY OF NATRIURETIC PEPTIDE (11/22/18) ASSAY OF TROPONIN QUANT (11/22/18) BL SMEAR W/DIFF WBC COUNT (11/22/18) C-REACTIVE PROTEIN (08/08/17) COMPLETE CBC AUTOMATED (11/22/18) COMPLETE CBC W/AUTO DIFF WBC (08/08/17) COMPREHEN METABOLIC PANEL (11/22/18) CT ABD & PELV W/CONTRAST (08/08/17) ELECTROCARDIOGRAM TRACING (11/22/18) EMERGENCY DEPT VISIT (11/22/18) FIBRIN DEGRADATION QUANT (11/22/18) HYDRATE IV INFUSION ADD-ON (08/08/17) PROTHROMBIN TIME (11/22/18) ROUTINE VENIPUNCTURE (11/22/18) TEST FOR ACETONE/KETONES (08/08/17) THER/DIAG CONCURRENT INF (11/22/18) THER/PROPH/DIAG INJ IV PUSH (11/22/18) THER/PROPH/DIAG IV INF ADDON (11/22/18) THER/PROPH/DIAG IV INF INIT (11/22/18) THROMBOPLASTIN TIME PARTIAL (11/22/18) TX/PRO/DX INJ NEW DRUG ADDON (11/22/18) TX/PRO/DX INJ SAME DRUG STEM LEAD FORMER (11/22/18) URINALYSIS AUTO W/SCOPE (08/08/17) X-RAY EXAM CHEST 1 VIEW (11/22/18) X-RAY EXAM OF ABDOMEN (08/08/17) Problem List Initiated/Reviewed/Updated: Yes Plan: Incarcerated incisional hernia without evidence of strangulation or obstruction. Urgent repair is warranted, though the patient has modifiable risk factors including dual antiplatelet therapy and tobacco use. We will tentatively plan for open hernia repair with mesh one week from tomorrow , 11/25/2019. He will hold his plavix and aspirin starting now, and will make an attempt to quit smoking. If the patient develops symptoms of strangulation or obstruction he will return to the hospital for emergent re-evaluation. Plan for EKG and CXR today while in the emergency room. Requesting Provider: sheba Consult Requested: 11/17/19 Reason for Consult: incisional hernia Patient History Reviewed: Yes Admission H&P Reviewed: Yes Notified Requestor: Yes Time Spent (in minutes): 45
[2019-11-17] MEDS ORDERED: traMADol 50 MG Tab PO ONE (19:41)
[2019-11-17] MEDS ORDERED: Potassium Chloride 20 MEQ Tab.ER PO ONE ×2 (19:43)
--- NOTE | 2019-11-18 08:37 | CR ---
Chest: 2 views of the chest were obtained. Comparison: Prior chest x-ray of 11/22/18. Heart size is normal. Tortuous thoracic aorta is seen. Lungs are clear with no acute parenchymal change. Mild scattered degenerative change is noted within the spine. Vascular calcification is noted within the visualized upper abdominal aorta. Impression: 1. Nothing acute is appreciated on 2 view chest x-ray. Diagnostic code #2 This report was dictated in MDT
== END 2019-11-17 20:20 | disposition home or self-care (01) ==
LOC: JD.ED 17:15
DX: K43.9 Ventral hernia without obstruction or gangrene (principal); E87.6 Hypokalemia; E78.00 Pure hypercholesterolemia, unspecified; I10 Essential (primary) hypertension; E66.9 Obesity, unspecified; Z68.30 Body mass index [BMI] 30.0-30.9, adult; Z79.82 Long term (current) use of aspirin; Z79.02 Long term (current) use of antithrombotics/antiplatelets; Z79.899 Other long term (current) drug therapy
CPT/HCPCS: 71046; 93005; 99284; A9270; 93010

== ENCOUNTER 2019-11-21 04:19 | Inpatient (IN) | payer MEDICARE, BC ==
[2019-11-21] MEDS ORDERED: Ondansetron 4 MG/2 ML SDV IVPUSH ONE (04:49)
[2019-11-21] MEDS ORDERED: HYDROmorphone 1 MG/ML Syringe IVPUSH STA (04:49)
--- NOTE | 2019-11-21 04:59 | EDM.PDOC ---
ED HPI GENERAL MEDICAL PROBLEM - General Chief Complaint: Abdominal Pain Stated Complaint: HERNIA-SURGERY SCHEDULED IN EXTREME PAIN Time Seen by Provider: 11/21/19 04:39 Source of Information: Reports: Patient History Limitations: Reports: No Limitations - History of Present Illness INITIAL COMMENTS - FREE TEXT/NARRATIVE: Mr. Vance is a very pleasant 64-year-old man with a past medical history significant for diverticulitis, status post a descending hemicolectomy in 2014, followed by an incisional herniorrhaphy, also in 2014, and a AAA, status post a njqex-iw-[id number] graft in 2018, who subsequently developed a left lower quadrant abdominal hernia. He was seen in this ED on 11/17/2019 after undergoing an outpatient CT scan of the abdomen and pelvis without contrast, which indicated that the hernia was incarcerated. He was evaluated by the Surgeon here in the ED, who did not feel that emergency surgery was indicated. He had the patient hold his aspirin and Plavix, and reparative surgery has been scheduled for this coming 11/25/2019. The patient was discharged home with a prescription for tramadol. The patient now returns to the ED stating that the pain that he has been experiencing in his left lower quadrant since October has been progressively getting worse, especially tonight. It is made worse if he coughs. He started having nausea and vomiting on 11/19/2019, and he has not had a bowel movement since 11/18/2019. His oral intake has been small. No recent fever. He has had a slight cough for the past 2 to 3 weeks. The patient denies recent chills, sore throat, ear pain, nasal or sinus congestion, dyspnea, chest pain, palpitations, constipation, diarrhea, urinary symptoms, recent weight gain or weight loss, recent bloody bowel movements or black bowel movements, recent joint aches, headaches, or rashes. The last time the patient took his aspirin or Plavix was Sunday morning, 2019. He last ate some crackers around noon yesterday, , 11/20/2019. Here in the ED, the patient is found to be mildly hypertensive at 152/92, otherwise, he is hemodynamically stable, afebrile, saturating 93% on room air. The patient's PCP is Dr. John Sánchez. His Surgeon is Dr. Lance Marquez. He received an influenza vaccine this season. Abdomen Pain Score (Numeric/FACES): 10 - Related Data Allergies Allergy/AdvReac Type Severity Reaction Status Date / Time No Known Allergies Allergy Verified 11/21/19 04:35 Home Meds: Home Meds Aspirin [Ecotrin EC] 81 mg PO DAILY 11/22/18 [History] Chlorthalidone 25 mg PO DAILY 11/17/19 [History] Clopidogrel [Plavix] 75 mg PO DAILY 11/17/19 [History] Metoprolol Succinate [Toprol XL] 12.5 mg PO DAILY 11/17/19 [History] Nitroglycerin [Nitrostat] 0.4 mg SL ASDIRECTED PRN 11/17/19 [History] amLODIPine Besylate [Amlodipine Besylate] 10 mg PO DAILY 11/17/19 [History] atorvaSTATin [Lipitor] 40 mg PO BEDTIME 11/17/19 [History] traMADol [Ultram] 50 mg PO Q6H PRN #15 tab 11/20/19 [Rx] Past Medical History Cardiovascular History: Reports: Aneurysm (AAA, s/p [id number] graft), High Cholesterol, Hypertension Gastrointestinal History: Reports: Diverticulosis (diverticulitis, s/p descending hemicolectomy) Genitourinary History: Reports: BPH (untreated), Chronic Renal Insuffiency Endocrine/Metabolic History: Reports: Obesity/BMI 30+ - Infectious Disease History Infectious Disease History: Reports: Chicken Pox, Measles, Mumps - Past Surgical History HEENT Surgical History: Reports: Myringotomy w Tube(s) (left), Oral Surgery ( upper dental extractions for dentures) Cardiovascular Surgical History: Reports: AAA Repair ([id number]-[id number] graft [address] [facility]) GI Surgical History: Reports: Colon (descending hemicolectomy for diverticulitis 2014), Hernia, Abdominal (incisional, 2015) Musculoskeletal Surgical History: Reports: Carpal Tunnel (left only) Social & Family History - Tobacco Use Smoking Status *Q: Current Every Day Smoker Years of Tobacco use: 51 Packs/Tins Daily: 0.3 Packs/Tins Daily Comment: Down from 1 ppd - Caffeine Use Caffeine Use: Reports: None - Alcohol Use Alcohol Use History: No - Recreational Drug Use Recreational Drug Use: No - Living Situation & Occupation Living situation: Reports: , with Spouse, with Family (2 adult kids) Occupation: Retired ED ROS GENERAL - Review of Systems Review Of Systems: Comprehensive ROS is negative, except as noted in HPI. Musculoskeletal: Reports: Back Pain (chronic) ED EXAM, GI/ABD - Physical Exam Exam: See Below Exam Limited By: No Limitations General Appearance: Alert, WD/WN, No Apparent Distress (Appears uncomfortable, especially when supine. Vomited once.) Eyes: Bilateral: Normal Appearance, EOMI Ears: Normal External Exam, Hearing Grossly Normal Nose: Normal Inspection Throat/Mouth: Normal Inspection, Normal Lips, Normal Voice, No Airway Compromise Head: Atraumatic, Normocephalic Neck: Normal Inspection, Full Range of Motion Respiratory/Chest: No Respiratory Distress, Lungs Clear, Normal Breath Sounds, No Accessory Muscle Use Cardiovascular: Normal Peripheral Pulses, Regular Rate, Rhythm, No Edema, No Gallop, No JVD, No Murmur, No Rub GI/Abdominal Exam: Normal Bowel Sounds (active), Soft, No Organomegaly, No Distention, No Abnormal Bruit, No Mass, Tender (to LLQ hernia; unable to apply much pressure to try to reduce due to tenderness), Hernia (protuberant left lower quadrant) (Male) Exam: Deferred Rectal (Males) Exam: Deferred Back Exam: Normal Inspection, Full Range of Motion, NT Extremities: Normal Inspection, Normal Range of Motion, No Pedal Edema, Normal Capillary Refill Neurological: Alert, Oriented, Normal Cognition, No Motor/Sensory Deficits Psychiatric: Normal Affect Skin Exam: Warm, Dry, Intact, Normal Color, No Rash Course - Vital Signs Last Recorded V/S: Last Vital Signs Temp 36.1 C 11/21/19 04:31 Pulse 91 11/21/19 04:31 Resp 20 11/21/19 04:31 BP 152/92 H 11/21/19 04:31 Pulse Ox 93 L 11/21/19 04:31 - Orders/Labs/Meds Orders: Active Orders 24 hr Category Date Time Status Abdomen Pelvis w Cont [CT] Stat Exams 11/21/19 04:49 Taken Chest 2V [CR] Stat Exams 11/21/19 04:51 Ordered Lactated Ringers [Ringers, Lactated] 1,000 ml Med 11/21/19 06:00 Active IV ASDIRECTED Potassium Chloride [KCl 10 MEQ in Water 100 ML] 10 meq Med 11/21/19 06:00 Active Premix Bag 1 bag IV Q1H Medication Orders Lactated Ringer's (Ringers, Lactated) 1,000 mls @ 150 mls/hr IV ASDIRECTED CHACHA Last Admin: 11/21/19 06:21 Dose: 150 mls/hr Potassium Chloride 10 meq/ (Premix) 100 mls @ 100 mls/hr IV Q1H CHACHA Stop: 11/21/19 11:59 Last Admin: 11/21/19 06:21 Dose: 100 mls/hr Labs: Laboratory Tests 11/21/19 11/21/19 11/21/19 Range/Units 05:00 05:00 05:00 WBC 8.08 (4.23-9.07) K/mm3 RBC 5.42 (4.63-6.08) M/mm3 Hgb 15.8 (13.7-17.5) gm/dl Hct 43.5 (40.1-51.0) % MCV 80.3 D (79.0-92.2) fl MCH 29.2 (25.7-32.2) pg MCHC 36.3 H (32.2-35.5) g/dl RDW Std Deviation 35.8 (35.1-43.9) fL Plt Count 220 (163-337) K/mm3 MPV 8.1 L (9.4-12.3) fl Neutrophils % (Manual) 80 H (40-60) % Band Neutrophils % 0 (0-10) % Lymphocytes % (Manual) 14 L (20-40) % Atypical Lymphs % 0 % Monocytes % (Manual) 3 (2-10) % Eosinophils % (Manual) 2 (0.8-7.0) % Basophils % (Manual) 1 (0.2-1.2) Platelet Estimate Adequate RBC Morph Comment Normal Sodium 126 L (136-145) mEq/L Potassium 2.6 L (3.5-5.1) mEq/L Chloride 86 L (98-107) mEq/L Carbon Dioxide 29 (21-32) mEq/L Anion Gap 13.6 (5-15) BUN 18 (7-18) mg/dL Creatinine 1.5 H (0.7-1.3) mg/dL Est Cr Clr Drug Dosing 48.44 mL/min Estimated GFR (MDRD) 47 (>60) mL/min BUN/Creatinine Ratio 12.0 L (14-18) Glucose 148 H (80-115) mg/dL Lactic Acid (0.4-2.0) mmol/L Calcium 9.4 (8.5-10.1) mg/dL Ferritin 270 (26-388) ng/ml Total Bilirubin 1.2 H (0.2-1.0) mg/dL AST 28 (15-37) U/L ALT 27 (16-63) U/L Alkaline Phosphatase 57 (46-116) U/L Lactate Dehydrogenase 164 (85-227) U/L C-Reactive Protein 2.7 H* (<1.0) mg/dL Total Protein 7.7 (6.4-8.2) g/dl Albumin 4.3 (3.4-5.0) g/dl Globulin 3.4 gm/dL Albumin/Globulin Ratio 1.3 (1-2) 11/21/19 Range/Units 05:00 WBC (4.23-9.07) K/mm3 RBC (4.63-6.08) M/mm3 Hgb (13.7-17.5) gm/dl Hct (40.1-51.0) % MCV (79.0-92.2) fl MCH (25.7-32.2) pg MCHC (32.2-35.5) g/dl RDW Std Deviation (35.1-43.9) fL Plt Count (163-337) K/mm3 MPV (9.4-12.3) fl Neutrophils % (Manual) (40-60) % Band Neutrophils % (0-10) % Lymphocytes % (Manual) (20-40) % Atypical Lymphs % % Monocytes % (Manual) (2-10) % Eosinophils % (Manual) (0.8-7.0) % Basophils % (Manual) (0.2-1.2) Platelet Estimate RBC Morph Comment Sodium (136-145) mEq/L Potassium (3.5-5.1) mEq/L Chloride (98-107) mEq/L Carbon Dioxide (21-32) mEq/L Anion Gap (5-15) BUN (7-18) mg/dL Creatinine (0.7-1.3) mg/dL Est Cr Clr Drug Dosing mL/min Estimated GFR (MDRD) (>60) mL/min BUN/Creatinine Ratio (14-18) Glucose (80-115) mg/dL Lactic Acid 1.5 (0.4-2.0) mmol/L Calcium (8.5-10.1) mg/dL Ferritin (26-388) ng/ml Total Bilirubin (0.2-1.0) mg/dL AST (15-37) U/L ALT (16-63) U/L Alkaline Phosphatase (46-116) U/L Lactate Dehydrogenase (85-227) U/L C-Reactive Protein (<1.0) mg/dL Total Protein (6.4-8.2) g/dl Albumin (3.4-5.0) g/dl Globulin gm/dL Albumin/Globulin Ratio (1-2) Meds: Medications Generic Name Dose Route Start Last Admin Trade Name Freq PRN Reason Stop Dose Admin Lactated Ringer's 1,000 mls @ 150 mls/hr 11/21/19 06:00 11/21/19 06:21 Ringers, Lactated IV 150 mls/hr ASDIRECTED CHACHA Administration Potassium Chloride 10 meq/ 100 mls @ 100 mls/hr 11/21/19 06:00 11/21/19 06:21 Premix IV 11/21/19 11:59 100 mls/hr Q1H CHACHA Administration Discontinued Medications Generic Name Dose Route Start Last Admin Trade Name Freq PRN Reason Stop Dose Admin Hydromorphone HCl 1 mg 11/21/19 04:49 11/21/19 05:00 Dilaudid IVPUSH 11/21/19 04:50 1 mg ONETIME STA Administration Sodium Chloride 1,000 mls @ 150 mls/hr 11/21/19 05:00 11/21/19 04:59 Normal Saline IV 150 mls/hr ASDIRECTED CHACHA Administration Ondansetron HCl 4 mg 11/21/19 04:49 11/21/19 04:59 Zofran IVPUSH 11/21/19 04:50 4 mg ONETIME ONE Administration - Re-Assessments/Exams Free Text/Narrative Re-Assessment/Exam: 11/21/19 04:52 I am concerned that the patient's left lower quadrant abdominal hernia has become incarcerated. I attempted to reduce it, but it is too tender to be able to put much pressure on it. The patient states that he has not had a bowel movement since Sunday, and he is vomiting, indicating a bowel obstruction. I have therefore ordered a CT of the abdomen and pelvis with oral and IV contrast , along with blood work. Additionally, because of the patient's complaint of a cough, I ordered a chest x-ray. In the meantime, the patient will be given IV Dilaudid, IV Zofran, and IV fluid. 11/21/19 05:51 The patient's CBC is unremarkable. His CMP is remarkable for a sodium depressed at 126, potassium depressed at 2.6 , chloride depressed at 86. His Cr is elevated at 1.5, with a BUN normal at 18. His blood glucose is elevated at 148. His TBil is slightly elevated at 1.2 , with the remainder of his CMP being unremarkable. His lactic acid level is within normal limits at 1.5. His LDH is within normal limits at 164. His ferritin is within normal limits at 270. His CRP is mildly elevated at 2.7. 11/21/19 07:02 Two-view chest radiograph appears to be grossly normal. The cardiac silhouette is within normal limits. No pulmonary vascular congestion. No pleural effusions. No focal infiltrate. No pneumothorax. Formal read per the Radiologist pending. CT of the abdomen and pelvis with oral and IV contrast as read by Dr. Barnes as: 1. Atrophy of the right kidney which is an interval change from prior exam. 2. Left anterior abdominal wall hernia containing a loop of small bowel. No findings of incarceration are seen at this time. Slight dilatation of proximal small bowel is noted and minimal partial obstruction is present, no other findings of incarceration are seen. 3. Diastases of the anterior rectus muscle with bulging of the bowel into this structure which appears stable. 4. Other findings as noted above which are felt to be stable and incidental. 11/21/19 07:10 With the exception of the mildly elevated CRP, none of today's tests suggest that the patient is suffering from COVID-19. Case discussed with Dr. Marquez at 07:07. He agreed that the hernia needs to be repaired, but stated that the patient was supposed undergo an outpatient cardiac stress test and echocardiogram yesterday, however, he did not follow his instructions and remain n.p.o., therefore the tests were not able to be done. He will come to the ED shortly to evaluate the patient and likely place him into observation to correct the electrolyte abnormalities. Departure - Departure Time of Disposition: 07:11 Disposition: Refer to Observation Condition: Good Clinical Impression: Abdominal hernia, Hyponatremia, Hypokalemia - Discharge Information *PRESCRIPTION DRUG MONITORING PROGRAM REVIEWED*: Not Applicable *COPY OF PRESCRIPTION DRUG MONITORING REPORT IN PATIENT SANDEEP: Not Applicable Referrals: John Sánchez MD [Primary Care Provider] - Lance Marquez MD [Physician] - Forms: ED Department Discharge Sepsis Event Note - Evaluation Sepsis Screening Result: No Definite Risk - Focused Exam Vital Signs: Vital Signs Temp Pulse Resp BP Pulse Ox 11/21/19 04:31 36.1 C 91 20 152/92 H 93 L Date Exam was Performed: 11/21/19 Time Exam was Performed: 06:59 - My Orders Last 24 Hours: My Active Orders 11/21/19 04:49 Abdomen Pelvis w Cont [CT] Stat 11/21/19 04:51 Chest 2V [CR] Stat 11/21/19 06:00 Lactated Ringers [Ringers, Lactated] 1,000 ml IV ASDIRECTED Potassium Chloride [KCl 10 MEQ in Water 100 ML] 10 meq Premix Bag 1 bag IV Q1H - Assessment/Plan Last 24 Hours: My Active Orders 11/21/19 04:49 Abdomen Pelvis w Cont [CT] Stat 11/21/19 04:51 Chest 2V [CR] Stat 11/21/19 06:00 Lactated Ringers [Ringers, Lactated] 1,000 ml IV ASDIRECTED Potassium Chloride [KCl 10 MEQ in Water 100 ML] 10 meq Premix Bag 1 bag IV Q1H
[2019-11-21] MEDS ORDERED: Sodium Chloride 0.9% 1,000 ML IV SCH (05:00)
[2019-11-21] MEDS ORDERED: Lactated Ringers 1,000 ML IV SCH (06:00)
[2019-11-21] MEDS: Potassium Chloride 10 MEQ in Premix Bag 1 BAG IV SCH ×5 (06:21→17:15)
--- NOTE | 2019-11-21 06:59 | CT ---
CT abdomen and pelvis Technique: Multiple axial sections were obtained from above the dome of the diaphragm inferiorly through the pubic symphysis. Intravenous contrast and oral contrast has been given. Delayed images were obtained through the pelvis. Comparison: Previous CT abdomen and pelvis exam of 08/08/17. Findings: 2 small nodules noted within the right middle lobe which appears stable from previous exam and most likely are due to noncalcified granulomas. Low-density area is seen next to the ligamentum teres fissure believed to represent a small amount of incidental fat. 2 small low-density findings noted within the right lobe of the liver which remain stable from prior exams and most likely represent small cysts. Larger abnormality seen within the left lobe of the liver which is also stable and measures about 1.1 cm in size most likely representing a small cyst. Small low-density finding within the inferior spleen which is also stable. Right kidney shows atrophy which is an interval change from prior exam. Left kidney appears within normal limits. Graft is within an abdominal aortic aneurysm. Graft continues into the iliac arteries. Left anterior abdominal wall hernia is noted which contains small bowel. This finding is fairly stable from previous exam. There is bulging next to this hernia within the anterior abdominal wall compatible with diastases of the rectus sheath. Midline surgical scar also appears to be present. Bowel proximal to this area is minimally prominent in size and minimal obstruction is possible. No pelvic mass or adenopathy is seen. No free fluid is seen. Appendix is not visualized with certainty. Delayed images shows contrast excretion from the left kidney with contrast is seen within the bladder. Impression: 1. Atrophy of the right kidney which is an interval change from prior exam. 2. Left anterior abdominal wall hernia containing a loop of small bowel. No findings of incarceration are seen at this time. Slight dilatation of proximal small bowel is noted and minimal partial obstruction is present, no other findings of incarceration are seen. 3. Diastases of the anterior rectus muscle with bulging of bowel into this structure which appears stable. 4. Other findings as noted above which are felt to be stable and incidental. Diagnostic code #3 centimeters and Study was dictated in MDT
--- NOTE | 2019-11-21 08:22 | CR ---
Chest: PA and lateral views of the chest were obtained. Comparison: Prior chest x-ray of 11/17/19. Heart size is within normal limits. Mild tortuosity of the thoracic aorta is noted. Lungs show no acute parenchymal change. Scattered disc space narrowing and mild endplate osteophytes are noted within the spine. Surgical clips and graft are seen from prior aneurysm repair within the abdomen. Impression: 1. Findings as noted above. 2. Nothing acute is appreciated on 2 view chest x-ray. Diagnostic code #2 This report was dictated in MDT
--- NOTE | 2019-11-21 09:17 | PCM.CONS ---
H&P History of Present Illness - General Date of Service: 11/21/19 Admit Problem/Dx: incarcerated incisional hernia Source of Information: Patient History Limitations: Reports: No Limitations - History of Present Illness Other HPI/Comments: Patient was seen earlier this week for this issue. He had an echocardiogram yesterday and is due for a stress test this Sunday prior to planned hernia repair Sunday after he has held his dual antiplatelet therapy for a full week. He had worsening pain and came the ER today for evaluation. Abdomen Pain Score (Numeric/FACES): 10 - Related Data Allergies/Adverse Reactions: Allergies Allergy/AdvReac Type Severity Reaction Status Date / Time No Known Allergies Allergy Verified 11/21/19 04:35 Home Medications: Home Meds Aspirin [Ecotrin EC] 81 mg PO DAILY 11/22/18 [History] Chlorthalidone 25 mg PO DAILY 11/17/19 [History] Clopidogrel [Plavix] 75 mg PO DAILY 11/17/19 [History] Metoprolol Succinate [Toprol XL] 12.5 mg PO DAILY 11/17/19 [History] Nitroglycerin [Nitrostat] 0.4 mg SL ASDIRECTED PRN 11/17/19 [History] amLODIPine Besylate [Amlodipine Besylate] 10 mg PO DAILY 11/17/19 [History] atorvaSTATin [Lipitor] 40 mg PO BEDTIME 11/17/19 [History] traMADol [Ultram] 50 mg PO Q6H PRN #15 tab 11/20/19 [Rx] Past Medical History HEENT History: Reports: Other (See Below) Other HEENT History: upper denture Cardiovascular History: Reports: Aneurysm (AAA, s/p [id number] graft), High Cholesterol, Hypertension Gastrointestinal History: Reports: Diverticulosis (diverticulitis, s/p descending hemicolectomy) Genitourinary History: Reports: BPH (untreated), Chronic Renal Insuffiency Musculoskeletal History: Reports: Back Pain, Chronic Endocrine/Metabolic History: Reports: Obesity/BMI 30+ - Infectious Disease History Infectious Disease History: Reports: Chicken Pox, Measles, Mumps - Past Surgical History HEENT Surgical History: Reports: Myringotomy w Tube(s) (left), Oral Surgery ( upper dental extractions for dentures) Cardiovascular Surgical History: Reports: AAA Repair ([id number] graft [address] [facility]) GI Surgical History: Reports: Colon (descending hemicolectomy for diverticulitis 2015), Hernia, Abdominal (incisional, 2015) Musculoskeletal Surgical History: Reports: Carpal Tunnel (left only) Social & Family History - Tobacco Use Smoking Status *Q: Current Every Day Smoker Years of Tobacco use: 51 Packs/Tins Daily: 0.3 Used Tobacco, but Quit: No - Caffeine Use Caffeine Use: Reports: None - Recreational Drug Use Recreational Drug Use: No - Living Situation & Occupation Living situation: Reports: , with Spouse, with Family (2 adult kids) Occupation: Retired H&P Review of Systems - Review of Systems: Review Of Systems: See Below General: Reports: Decreased Appetite HEENT: Reports: No Symptoms Pulmonary: Reports: No Symptoms Cardiovascular: Reports: No Symptoms Gastrointestinal: Reports: Abdominal Pain, Vomiting Review of Systems Comment:: reports passing flatus now Exam - Exam Exam: See Below - Vital Signs Vital Signs: Last Vital Signs Temp 36.1 C 11/21/19 04:31 Pulse 91 11/21/19 04:31 Resp 20 11/21/19 04:31 BP 152/92 H 11/21/19 04:31 Pulse Ox 93 L 11/21/19 04:31 Weight: 92.533 kg - Exam General: Alert, Oriented, Cooperative HEENT: Conjunctiva Clear Neck: Supple Cardiovascular: Regular Rate GI/Abdominal Exam: Hernia - Patient Data Lab Results Last 24 hrs: Laboratory Results - last 24 hr 11/21/19 11/21/19 11/21/19 Range/Units 05:00 05:00 05:00 WBC 8.08 (4.23-9.07) K/mm3 RBC 5.42 (4.63-6.08) M/mm3 Hgb 15.8 (13.7-17.5) gm/dl Hct 43.5 (40.1-51.0) % MCV 80.3 D (79.0-92.2) fl MCH 29.2 (25.7-32.2) pg MCHC 36.3 H (32.2-35.5) g/dl RDW Std Deviation 35.8 (35.1-43.9) fL Plt Count 220 (163-337) K/mm3 MPV 8.1 L (9.4-12.3) fl Neutrophils % (Manual) 80 H (40-60) % Band Neutrophils % 0 (0-10) % Lymphocytes % (Manual) 14 L (20-40) % Atypical Lymphs % 0 % Monocytes % (Manual) 3 (2-10) % Eosinophils % (Manual) 2 (0.8-7.0) % Basophils % (Manual) 1 (0.2-1.2) Platelet Estimate Adequate RBC Morph Comment Normal Sodium 126 L (136-145) mEq/L Potassium 2.6 L (3.5-5.1) mEq/L Chloride 86 L (98-107) mEq/L Carbon Dioxide 29 (21-32) mEq/L Anion Gap 13.6 (5-15) BUN 18 (7-18) mg/dL Creatinine 1.5 H (0.7-1.3) mg/dL Est Cr Clr Drug Dosing 48.44 mL/min Estimated GFR (MDRD) 47 (>60) mL/min BUN/Creatinine Ratio 12.0 L (14-18) Glucose 148 H (80-115) mg/dL Lactic Acid (0.4-2.0) mmol/L Calcium 9.4 (8.5-10.1) mg/dL Ferritin 270 (26-388) ng/ml Total Bilirubin 1.2 H (0.2-1.0) mg/dL AST 28 (15-37) U/L ALT 27 (16-63) U/L Alkaline Phosphatase 57 (46-116) U/L Lactate Dehydrogenase 164 (85-227) U/L C-Reactive Protein 2.7 H* (<1.0) mg/dL Total Protein 7.7 (6.4-8.2) g/dl Albumin 4.3 (3.4-5.0) g/dl Globulin 3.4 gm/dL Albumin/Globulin Ratio 1.3 (1-2) 11/21/19 Range/Units 05:00 WBC (4.23-9.07) K/mm3 RBC (4.63-6.08) M/mm3 Hgb (13.7-17.5) gm/dl Hct (40.1-51.0) % MCV (79.0-92.2) fl MCH (25.7-32.2) pg MCHC (32.2-35.5) g/dl RDW Std Deviation (35.1-43.9) fL Plt Count (163-337) K/mm3 MPV (9.4-12.3) fl Neutrophils % (Manual) (40-60) % Band Neutrophils % (0-10) % Lymphocytes % (Manual) (20-40) % Atypical Lymphs % % Monocytes % (Manual) (2-10) % Eosinophils % (Manual) (0.8-7.0) % Basophils % (Manual) (0.2-1.2) Platelet Estimate RBC Morph Comment Sodium (136-145) mEq/L Potassium (3.5-5.1) mEq/L Chloride (98-107) mEq/L Carbon Dioxide (21-32) mEq/L Anion Gap (5-15) BUN (7-18) mg/dL Creatinine (0.7-1.3) mg/dL Est Cr Clr Drug Dosing mL/min Estimated GFR (MDRD) (>60) mL/min BUN/Creatinine Ratio (14-18) Glucose (80-115) mg/dL Lactic Acid 1.5 (0.4-2.0) mmol/L Calcium (8.5-10.1) mg/dL Ferritin (26-388) ng/ml Total Bilirubin (0.2-1.0) mg/dL AST (15-37) U/L ALT (16-63) U/L Alkaline Phosphatase (46-116) U/L Lactate Dehydrogenase (85-227) U/L C-Reactive Protein (<1.0) mg/dL Total Protein (6.4-8.2) g/dl Albumin (3.4-5.0) g/dl Globulin gm/dL Albumin/Globulin Ratio (1-2) Result Diagrams: 11/21/19 05:00 11/21/19 05:00 Sepsis Event Note - Evaluation Sepsis Screening Result: No Definite Risk - Focused Exam Vital Signs: Vital Signs Temp Pulse Resp BP Pulse Ox 11/21/19 04:31 36.1 C 91 20 152/92 H 93 L Date Exam was Performed: 11/21/19 Time Exam was Performed: 09:11 *Q Meaningful Use (ADM) - VTE Risk Assess *Q Each Risk Factor Represents 2 Points: Age 60 - 74 Years, Major surgery greater than 45 minutes Total Score 2 Point Risk Factors: 4 Consult PN Assessment/Plan Procedures: Procedures ASSAY OF AMYLASE (08/08/17) ASSAY OF LACTIC ACID (08/08/17) ASSAY OF NATRIURETIC PEPTIDE (11/22/18) ASSAY OF TROPONIN QUANT (11/22/18) BL SMEAR W/DIFF WBC COUNT (11/22/18) C-REACTIVE PROTEIN (08/08/17) COMPLETE CBC AUTOMATED (11/22/18) COMPLETE CBC W/AUTO DIFF WBC (08/08/17) COMPREHEN METABOLIC PANEL (11/22/18) CT ABD & PELV W/CONTRAST (08/08/17) ELECTROCARDIOGRAM TRACING (11/17/19) EMERGENCY DEPT VISIT (11/17/19) EMERGENCY DEPT VISIT (11/22/18) FIBRIN DEGRADATION QUANT (11/22/18) HYDRATE IV INFUSION ADD-ON (08/08/17) PROTHROMBIN TIME (11/22/18) ROUTINE VENIPUNCTURE (11/22/18) TEST FOR ACETONE/KETONES (08/08/17) THER/DIAG CONCURRENT INF (11/22/18) THER/PROPH/DIAG INJ IV PUSH (11/22/18) THER/PROPH/DIAG IV INF ADDON (11/22/18) THER/PROPH/DIAG IV INF INIT (11/22/18) THROMBOPLASTIN TIME PARTIAL (11/22/18) TX/PRO/DX INJ NEW DRUG ADDON (11/22/18) TX/PRO/DX INJ SAME DRUG SUPERVISOR ROVING DEPARTMENT (11/22/18) URINALYSIS AUTO W/SCOPE (08/08/17) X-RAY EXAM CHEST 1 VIEW (11/22/18) X-RAY EXAM CHEST 2 VIEWS (11/17/19) X-RAY EXAM OF ABDOMEN (08/08/17) Problem List Initiated/Reviewed/Updated: Yes Plan: Symptoms at presentation today have resolved. Getting electrolyte replenishment now. No sign of strangulated or ischemic bowel. I had another discussion with the patient, comparing the current scenario to walking a tightrope until planned hernia repair next week. If he develops signs of strangulated bowel we will have to accept the high risk of emergency surgery, but ideally he should hold his aspirin and plavix for a week and have a stress test completed before hernia repair. I think it is okay for him to go home now as his symptoms are much improved. He knows to come right back to the hospital for reassessment if he develops worrisome symptoms.
[2019-11-21] MEDS ORDERED: HYDROmorphone 0.5 MG/0.5 ML Syringe IVPUSH ONE (09:44)
[2019-11-21] MEDS ORDERED: Metoclopramide 10 MG/2 ML SDV IVPUSH ONE (10:23)
[2019-11-21] MEDS ORDERED: Potassium Chloride 20 MEQ Tab.ER PO ONE (11:26)
[2019-11-21] MEDS ORDERED: Nitroglycerin 0.4 MG Tab.SL SL PRN (12:21)
[2019-11-21] MEDS ORDERED: HYDROmorphone 1 MG/ML Syringe IVPUSH ONE (13:11)
--- NOTE | 2019-11-21 13:20 | PCM.HP.2 ---
H&P History of Present Illness - General Date of Service: 11/21/19 Admit Problem/Dx: incarcerated incisional hernia Source of Information: Patient History Limitations: Reports: No Limitations - History of Present Illness Other HPI/Comments: See consult note from earlier, but prior to discharge from ER patient developed worsening pain and vomiting. Plan for admission. Abdomen Pain Score (Numeric/FACES): 9 - Related Data Allergies/Adverse Reactions: Allergies Allergy/AdvReac Type Severity Reaction Status Date / Time No Known Allergies Allergy Verified 11/21/19 04:35 Home Medications: Home Meds Aspirin [Ecotrin EC] 81 mg PO DAILY 11/22/18 [History] Chlorthalidone 25 mg PO DAILY 11/17/19 [History] Clopidogrel [Plavix] 75 mg PO DAILY 11/17/19 [History] Metoprolol Succinate [Toprol XL] 12.5 mg PO DAILY 11/17/19 [History] Nitroglycerin [Nitrostat] 0.4 mg SL ASDIRECTED PRN 11/17/19 [History] amLODIPine Besylate [Amlodipine Besylate] 10 mg PO DAILY 11/17/19 [History] atorvaSTATin [Lipitor] 40 mg PO BEDTIME 11/17/19 [History] traMADol [Ultram] 50 mg PO Q6H PRN #15 tab 11/20/19 [Rx] Hydrocodone/Acetaminophen [Hydrocodon-Acetaminophen 5-325] 1 - 2 each PO Q6HR PRN #20 tablet 11/21/19 [Rx] Potassium Chloride 20 meq PO DAILY #30 tablet.er 11/21/19 [Rx] Past Medical History HEENT History: Reports: Other (See Below) Other HEENT History: upper denture Cardiovascular History: Reports: Aneurysm (AAA, s/p [id number] graft), High Cholesterol, Hypertension Gastrointestinal History: Reports: Diverticulosis (diverticulitis, s/p descending hemicolectomy) Genitourinary History: Reports: BPH (untreated), Chronic Renal Insuffiency Musculoskeletal History: Reports: Back Pain, Chronic Endocrine/Metabolic History: Reports: Obesity/BMI 30+ - Infectious Disease History Infectious Disease History: Reports: Chicken Pox, Measles, Mumps - Past Surgical History HEENT Surgical History: Reports: Myringotomy w Tube(s) (left), Oral Surgery ( upper dental extractions for dentures) Cardiovascular Surgical History: Reports: AAA Repair ([id number] graft [address] [facility]) GI Surgical History: Reports: Colon (descending hemicolectomy for diverticulitis 2014), Hernia, Abdominal (incisional, 2015) Musculoskeletal Surgical History: Reports: Carpal Tunnel (left only) Social & Family History - Tobacco Use Smoking Status *Q: Current Every Day Smoker Years of Tobacco use: 51 Packs/Tins Daily: 0.3 Used Tobacco, but Quit: No - Caffeine Use Caffeine Use: Reports: None - Recreational Drug Use Recreational Drug Use: No - Living Situation & Occupation Living situation: Reports: , with Spouse, with Family (2 adult kids) Occupation: Retired H&P Review of Systems - Review of Systems: Review Of Systems: See Below General: Reports: Malaise, Fatigue HEENT: Reports: No Symptoms Pulmonary: Reports: No Symptoms Cardiovascular: Reports: No Symptoms Gastrointestinal: Reports: Abdominal Pain, Vomiting Musculoskeletal: Reports: No Symptoms Skin: Reports: No Symptoms Psychiatric: Reports: No Symptoms Neurological: Reports: No Symptoms Hematologic/Lymphatic: Reports: Easy Bleeding Immunologic: Reports: No Symptoms Exam - Exam Exam: See Below - Vital Signs Vital Signs: Last Vital Signs Temp 37.1 C 11/21/19 13:00 Pulse 92 11/21/19 13:00 Resp 18 11/21/19 13:00 BP 130/78 11/21/19 13:00 Pulse Ox 86 L 11/21/19 13:00 Weight: 92.533 kg - Exam General: Alert, Oriented Neck: Supple Lungs: Clear to Auscultation Cardiovascular: Regular Rate, Regular Rhythm GI/Abdominal Exam: Hernia Skin: Warm, Dry Psychiatric: Alert - Patient Data Lab Results Last 24 hrs: Laboratory Results - last 24 hr 11/21/19 11/21/19 11/21/19 Range/Units 05:00 05:00 05:00 WBC 8.08 (4.23-9.07) K/mm3 RBC 5.42 (4.63-6.08) M/mm3 Hgb 15.8 (13.7-17.5) gm/dl Hct 43.5 (40.1-51.0) % MCV 80.3 D (79.0-92.2) fl MCH 29.2 (25.7-32.2) pg MCHC 36.3 H (32.2-35.5) g/dl RDW Std Deviation 35.8 (35.1-43.9) fL Plt Count 220 (163-337) K/mm3 MPV 8.1 L (9.4-12.3) fl Neutrophils % (Manual) 80 H (40-60) % Band Neutrophils % 0 (0-10) % Lymphocytes % (Manual) 14 L (20-40) % Atypical Lymphs % 0 % Monocytes % (Manual) 3 (2-10) % Eosinophils % (Manual) 2 (0.8-7.0) % Basophils % (Manual) 1 (0.2-1.2) Platelet Estimate Adequate RBC Morph Comment Normal Sodium 126 L (136-145) mEq/L Potassium 2.6 L (3.5-5.1) mEq/L Chloride 86 L (98-107) mEq/L Carbon Dioxide 29 (21-32) mEq/L Anion Gap 13.6 (5-15) BUN 18 (7-18) mg/dL Creatinine 1.5 H (0.7-1.3) mg/dL Est Cr Clr Drug Dosing 48.44 mL/min Estimated GFR (MDRD) 47 (>60) mL/min BUN/Creatinine Ratio 12.0 L (14-18) Glucose 148 H (80-115) mg/dL Lactic Acid (0.4-2.0) mmol/L Calcium 9.4 (8.5-10.1) mg/dL Ferritin 270 (26-388) ng/ml Total Bilirubin 1.2 H (0.2-1.0) mg/dL AST 28 (15-37) U/L ALT 27 (16-63) U/L Alkaline Phosphatase 57 (46-116) U/L Lactate Dehydrogenase 164 (85-227) U/L C-Reactive Protein 2.7 H* (<1.0) mg/dL Total Protein 7.7 (6.4-8.2) g/dl Albumin 4.3 (3.4-5.0) g/dl Globulin 3.4 gm/dL Albumin/Globulin Ratio 1.3 (1-2) 11/21/19 Range/Units 05:00 WBC (4.23-9.07) K/mm3 RBC (4.63-6.08) M/mm3 Hgb (13.7-17.5) gm/dl Hct (40.1-51.0) % MCV (79.0-92.2) fl MCH (25.7-32.2) pg MCHC (32.2-35.5) g/dl RDW Std Deviation (35.1-43.9) fL Plt Count (163-337) K/mm3 MPV (9.4-12.3) fl Neutrophils % (Manual) (40-60) % Band Neutrophils % (0-10) % Lymphocytes % (Manual) (20-40) % Atypical Lymphs % % Monocytes % (Manual) (2-10) % Eosinophils % (Manual) (0.8-7.0) % Basophils % (Manual) (0.2-1.2) Platelet Estimate RBC Morph Comment Sodium (136-145) mEq/L Potassium (3.5-5.1) mEq/L Chloride (98-107) mEq/L Carbon Dioxide (21-32) mEq/L Anion Gap (5-15) BUN (7-18) mg/dL Creatinine (0.7-1.3) mg/dL Est Cr Clr Drug Dosing mL/min Estimated GFR (MDRD) (>60) mL/min BUN/Creatinine Ratio (14-18) Glucose (80-115) mg/dL Lactic Acid 1.5 (0.4-2.0) mmol/L Calcium (8.5-10.1) mg/dL Ferritin (26-388) ng/ml Total Bilirubin (0.2-1.0) mg/dL AST (15-37) U/L ALT (16-63) U/L Alkaline Phosphatase (46-116) U/L Lactate Dehydrogenase (85-227) U/L C-Reactive Protein (<1.0) mg/dL Total Protein (6.4-8.2) g/dl Albumin (3.4-5.0) g/dl Globulin gm/dL Albumin/Globulin Ratio (1-2) Result Diagrams: 11/21/19 05:00 11/21/19 05:00 Sepsis Event Note - Evaluation Sepsis Screening Result: No Definite Risk - Focused Exam Vital Signs: Vital Signs Temp Pulse Resp BP Pulse Ox 11/21/19 13:00 37.1 C 92 18 130/78 86 L 11/21/19 12:05 36.8 C 94 20 157/92 H 89 L 04/10/20 09:59 36.7 C 68 16 136/94 H 92 L 11/21/19 04:31 36.1 C 91 20 152/92 H 93 L Date Exam was Performed: 11/21/19 Time Exam was Performed: 13:17 *Q Meaningful Use (ADM) - VTE *Q VTE Pharmacological Contraindications *Q: Risk of Bleeding Problem List Initiated/Reviewed/Updated: Yes Orders Last 24hrs: Active Orders 24 hr Category Date Time Status Patient Status [ADT] Routine ADT 11/21/19 12:23 Active Activity as Tolerated [RC] .Routine Care 11/21/19 12:23 Active Antiembolic Devices [RC] PER UNIT ROUTINE Care 11/21/19 12:24 Active Gastrointestinal Tube Mgmt [RC] ASDIRECTED Care 11/21/19 12:12 Active Oxygen Therapy [RC] PRN Care 11/21/19 12:23 Active RT Incentive Spirometry [RC] Q1HWA Care 11/21/19 12:23 Active Vital Signs [RC] Q4HR Care 11/21/19 12:23 Active Nothing Per Oral Diet [DIET] Diet 11/21/19 Breakfast Active BASIC METABOLIC PANEL,BMP [CHEM] AM Lab 11/22/19 05:11 Ordered CBC WITH AUTO DIFF [HEME] AM Lab 11/22/19 05:11 Ordered Chlorthalidone Med 11/22/19 09:00 Active 25 mg PO DAILY Lactated Ringers [Ringers, Lactated] 1,000 ml Med 11/21/19 06:00 Active IV ASDIRECTED Metoprolol Succinate [Toprol XL] Med 11/22/19 09:00 Active 12.5 mg PO DAILY Morphine Med 11/21/19 12:23 Active 1 mg IVPUSH Q4H PRN Nitroglycerin [Nitrostat] Med 11/21/19 12:21 Active 0.4 mg SL ASDIRECTED PRN Rosuvastatin [Crestor] Med 11/22/19 09:00 Active 10 mg PO DAILY NG [Nasogastric Orogastric Tube Insertion] [OM.PC] Oth 11/21/19 12:12 Ordered Routine Sequential Compression Device [OM.PC] Routine Oth 11/21/19 12:23 Ordered Resuscitation Status Routine Resus Stat 11/21/19 12:23 Ordered Medication Orders Chlorthalidone (Chlorthalidone) 25 mg PO DAILY [facility]ACHA Lactated Ringer's (Ringers, Lactated) 1,000 mls @ 100 mls/hr IV ASDIRECTED [facility] Last Admin: 11/21/19 06:21 Dose: 150 mls/hr Metoprolol Succinate (Toprol Xl) 12.5 mg PO DAILY [facility] Morphine Sulfate (Morphine) 1 mg IVPUSH Q4H PRN PRN Reason: Pain (severe 7-10) Nitroglycerin (Nitrostat) 0.4 mg SL ASDIRECTED PRN PRN Reason: Chest Pain Rosuvastatin Calcium (Crestor) 10 mg PO DAILY [facility] Assessment/Plan Comment:: Admit to hospital. NG tube decompression, repeat labs in AM. Will work to complete pre-operative evaluation inpatient prior to hernia repair.
[2019-11-21] MEDS: Lactated Ringers 1,000 ML IV SCH (16:56)
[2019-11-21] MEDS: Morphine 2 MG/ML Syringe IVPUSH PRN ×2 (18:13→22:10)
[2019-11-22] MEDS: Morphine 2 MG/ML Syringe IVPUSH PRN ×5 (04:00→23:28)
[2019-11-22] MEDS: Lactated Ringers 1,000 ML IV SCH (04:01)
[2019-11-22] MEDS ORDERED: Potassium Chloride 10% 20 MEQ/15 ML Soln 15 ML UD Cup PO ONE (06:24)
[2019-11-22] MEDS: Metoprolol Succinate 25 MG Tab.ER PO SCH (08:01)
[2019-11-22] MEDS: Rosuvastatin 10 MG Tab PO SCH (08:02)
[2019-11-22] MEDS: Chlorthalidone 25 MG Tab PO SCH (08:02)
--- NOTE | 2019-11-22 09:02 | PCM.SN ---
- Free Text/Narrative Note: S: doing okay, some trouble sleeping and some pain overnight. No flatus O: AF-VSS hypokalemic 2.5 WBC wnl NG output about 1300 cc in 24 hours, brown mild tenderness at hernia site, no evidence of peritonitis A:incarcerated incisional hernia with pain and signs of small bowel obstruction P: Continue NG decompression Switch IVF to D5 1/2 NS w KCl at 75 cc/hr. Replace K+ Plan for stress test Sunday and OR for laparoscopic incisional hernia repair thereafter
[2019-11-22] MEDS: Potassium Chloride 10 MEQ in Premix Bag 1 BAG IV SCH ×4 (09:44→16:46)
[2019-11-22] MEDS: D5 1/2 NS w/ 20 mEq/L KCl 1,000 ML IV SCH ×2 (09:44→23:28)
[2019-11-23] MEDS: Morphine 2 MG/ML Syringe IVPUSH PRN ×5 (03:57→21:01)
[2019-11-23] MEDS: Metoprolol Succinate 25 MG Tab.ER PO SCH (07:59)
[2019-11-23] MEDS: Chlorthalidone 25 MG Tab PO SCH (07:59)
[2019-11-23] MEDS: Rosuvastatin 10 MG Tab PO SCH (08:00)
[2019-11-23] MEDS ORDERED: Sodium Chloride 0.9% 500 ML IV ONE (08:21)
[2019-11-23] MEDS ORDERED: Potassium Phosphates 30 MMOLE in Sodium Chloride 0.9% 500 ML IV ONE (08:30)
--- NOTE | 2019-11-23 10:40 | PCM.SN ---
- Free Text/Narrative Note: S:No acute events, some mild pain at hernia site occasionally. Passing some flatus. O:AF_VSS NG output >1L in 24 hrs, brownish Abdomen soft, hernia contents softer, minimal tenderness A:incarcerated incisional hernia P: plan for stress test tomorrow prior to planned laparoscopic, possible open hernia repair 500 cc NS bolus Replenish K+ with sodium phosphate IV Morphine prn pain monitor intake/output SCD for DVT ppx continue NG decompression until time of surgery
[2019-11-23] MEDS: D5 1/2 NS w/ 20 mEq/L KCl 1,000 ML IV SCH (20:30)
[2019-11-24] MEDS: Morphine 2 MG/ML Syringe IVPUSH PRN ×6 (00:51→22:23)
--- NOTE | 2019-11-24 07:46 | PCM.PRNOTE ---
- Free Text/Narrative Note: Date of service: 11/24/19 Procedure: Regadenoson (Lexiscan) stress test Ordering provider: Dr. Lance Marquez Indication: Chest pain, acute, nonspecific; CAD risk, low, asymptomatic Baseline EKG: Sinus rhythm with a 1 degree HB and RBBB at 62 bpm. T-wave inversion in aVL, V1-V2. Risks and benefits were discussed with the patient and consent form was signed. The patient received Regadenoson (Lexiscan) 0.4 mg IV and a nuclear agent using standard protocol. The patient was seated for the procedure. Lexiscan test: Heart rate: 101 bpm; Blood pressure: 144/77 mm Hg; Oxygenation: 95%. EKG changes of ischemia during stress test or in recovery: None Arrhythmias: None Adverse effects of Lexiscan: Nausea, flushed feeling, headache, and chest pressure all rapidly and spontaneously improving or resolving prior to completion of test. Test terminated due to: End of protocol Impression: 1. Indeterminate Lexiscan stress test ECG for ischemia. Non-diagnostic per Lexiscan protocol. No definitive signs of ischemia seen. 2. Nuclear images pending and will be reported separately per Radiologist.
[2019-11-24] MEDS ORDERED: Morphine 2 MG/ML Syringe IVPUSH PRN (08:24)
--- NOTE | 2019-11-24 09:13 | PCM.PREANE ---
Preanesthetic Assessment - Anesthesia/Transfusion/Family Hx Anesthesia History: Prior Anesthesia Without Reaction Transfusion History: No Prior Transfusion(s) - Review of Systems General: Weakness, Fatigue Pulmonary: Cough Cardiovascular: No Symptoms Gastrointestinal: Other (suspected bowel obstruction , NGT in place) Neurological: No Symptoms - Physical Assessment NPO Status Date: 11/20/19 NPO Status Time: 12:00 Vital Signs: Last Vital Signs Temp 97.9 F 11/24/19 03:48 Pulse 68 11/24/19 03:48 Resp 16 11/24/19 03:48 BP 141/89 H 11/24/19 03:48 Pulse Ox 92 L 11/24/19 03:48 Height: 1.75 m Weight: 86.5 kg ASA Class: 3 Mental Status: Alert & Oriented x3 Airway Class: Mallampati = 3 Dentition: Reports: Dentures, Edentulous Thyro-Mental Finger Breadths: 3 Mouth Opening Finger Breadths: 3 ROM/Head Extension: Limited/Partial Lungs: Clear to Auscultation, Normal Respiratory Effort Cardiovascular: Regular Rate, Regular Rhythm - Lab Values: Laboratory Last Values WBC 5.30 K/mm3 (4.23-9.07) 11/22/19 05:15 RBC 4.64 M/mm3 (4.63-6.08) 11/22/19 05:15 Hgb 13.4 gm/dl (13.7-17.5) L D 11/22/19 05:15 Hct 38.2 % (40.1-51.0) L 11/22/19 05:15 MCV 82.3 fl (79.0-92.2) 11/22/19 05:15 MCH 28.9 pg (25.7-32.2) 11/22/19 05:15 MCHC 35.1 g/dl (32.2-35.5) 11/22/19 05:15 RDW Std Deviation 37.3 fL (35.1-43.9) 11/22/19 05:15 Plt Count 198 K/mm3 (163-337) 11/22/19 05:15 MPV 8.7 fl (9.4-12.3) L 11/22/19 05:15 Neut % (Auto) 64.6 % (34.0-67.9) 11/22/19 05:15 Lymph % (Auto) 22.1 % (21.8-53.1) 11/22/19 05:15 [place] % (Auto) 10.6 % (5.3-12.2) 11/22/19 05:15 Eos % (Auto) 1.7 (0.8-7.0) 11/22/19 05:15 Baso % (Auto) 0.6 % (0.1-1.2) 11/22/19 05:15 Neut # (Auto) 3.43 K/mm3 (1.78-5.38) 11/22/19 05:15 Lymph # (Auto) 1.17 K/mm3 (1.32-3.57) L 11/22/19 05:15 [place] # (Auto) 0.56 K/mm3 (0.30-0.82) 11/22/19 05:15 Eos # (Auto) 0.09 K/mm3 (0.04-0.54) 11/22/19 05:15 Baso # (Auto) 0.03 K/mm3 (0.01-0.08) 11/22/19 05:15 Neutrophils % (Manual) 80 % (40-60) H 11/21/19 05:00 Band Neutrophils % 0 % (0-10) 11/21/19 05:00 Lymphocytes % (Manual) 14 % (20-40) L 11/21/19 05:00 Atypical Lymphs % 0 % 11/21/19 05:00 Monocytes % (Manual) 3 % (2-10) 11/21/19 05:00 Eosinophils % (Manual) 2 % (0.8-7.0) 11/21/19 05:00 Basophils % (Manual) 1 (0.2-1.2) 11/21/19 05:00 Platelet Estimate Adequate 11/21/19 05:00 RBC Morph Comment Normal 11/21/19 05:00 Sodium 133 mEq/L (136-145) L 11/23/19 05:21 Potassium 2.9 mEq/L (3.5-5.1) L 11/23/19 05:21 Chloride 92 mEq/L (98-107) L 11/23/19 05:21 Carbon Dioxide 31 mEq/L (21-32) 11/23/19 05:21 Anion Gap 12.9 (5-15) 11/23/19 05:21 BUN 11 mg/dL (7-18) 11/23/19 05:21 Creatinine 1.3 mg/dL (0.7-1.3) 11/23/19 05:21 Est Cr Clr Drug Dosing 55.90 mL/min 11/23/19 05:21 Estimated GFR (MDRD) 55 mL/min (>60) 11/23/19 05:21 BUN/Creatinine Ratio 8.5 (14-18) L 11/23/19 05:21 Glucose 113 mg/dL (80-115) 11/23/19 05:21 Lactic Acid 1.5 mmol/L (0.4-2.0) 11/21/19 05:00 Calcium 9.1 mg/dL (8.5-10.1) 11/23/19 05:21 Phosphorus 2.0 mg/dL (2.6-4.7) L 11/23/19 05:21 Magnesium 1.9 mg/dl (1.8-2.4) 11/23/19 05:21 Ferritin 270 ng/ml (26-388) 11/21/19 05:00 Total Bilirubin 1.2 mg/dL (0.2-1.0) H 11/21/19 05:00 AST 28 U/L (15-37) 11/21/19 05:00 ALT 27 U/L (16-63) 11/21/19 05:00 Alkaline Phosphatase 57 U/L (46-116) 11/21/19 05:00 Lactate Dehydrogenase 164 U/L (85-227) 11/21/19 05:00 C-Reactive Protein 2.7 mg/dL (<1.0) H* 11/21/19 05:00 Total Protein 7.7 g/dl (6.4-8.2) 11/21/19 05:00 Albumin 4.3 g/dl (3.4-5.0) 11/21/19 05:00 Globulin 3.4 gm/dL 11/21/19 05:00 Albumin/Globulin Ratio 1.3 (1-2) 11/21/19 05:00 - Imaging/EKG Impressions: EKG 11/17/19 reviewed , SR with RBBB, prolonged QT, no ischemia SARA 11/20/19 reviewed, mild AVR, no RWMA, LVEF - 60-65% Lexiscan ST 11/24/19 reviewed - no definitive signs of ischemia noted Nuclear imaging 11/24/19 No abnormality, EF 70% - Allergies Allergies/Adverse Reactions: Allergies Allergy/AdvReac Type Severity Reaction Status Date / Time No Known Allergies Allergy Verified 11/21/19 15:21 - Anesthesia Plan Beta Sasha: Metoprolol Med Last Dose Date: 11/23/19 Med Last Dose Time: 08:00 - Acknowledgements Anesthesia Type Planned: General Anesthesia Pt an Appropriate Candidate for the Planned Anesthesia: Yes Alternatives and Risks of Anesthesia Discussed w Pt/Guardian: Yes Pt/Guardian Understands and Agrees with Anesthesia Plan: Yes PreAnesthesia Questionnaire HEENT History: Reports: Hard of Hearing, Other (See Below) Other HEENT History: upper/lower denture Cardiovascular History: Reports: Aneurysm, High Cholesterol, Hypertension Gastrointestinal History: Reports: Diverticulosis Genitourinary History: Reports: BPH, Chronic Renal Insuffiency Musculoskeletal History: Reports: Back Pain, Chronic - Infectious Disease History Infectious Disease History: Reports: Chicken Pox, Measles, Mumps - Past Surgical History HEENT Surgical History: Reports: Myringotomy w Tube(s), Oral Surgery Cardiovascular Surgical History: Reports: AAA Repair (2018) GI Surgical History: Reports: Colon, Colostomy, Hernia, Abdominal Other GI Surgeries/Procedures: x3 Musculoskeletal Surgical History: Reports: Carpal Tunnel - SUBSTANCE USE Smoking Status *Q: Current Every Day Smoker Tobacco Use Within Last Twelve Months: Cigarettes Second Hand Smoke Exposure: No Recreational Drug Use History: No - HOME MEDS Home Medications: Home Meds Aspirin [Ecotrin EC] 81 mg PO DAILY 11/22/18 [History] Chlorthalidone 25 mg PO DAILY 11/17/19 [History] Clopidogrel [Plavix] 75 mg PO DAILY 11/17/19 [History] Metoprolol Succinate [Toprol XL] 12.5 mg PO DAILY 11/17/19 [History] Nitroglycerin [Nitrostat] 0.4 mg SL ASDIRECTED PRN 11/17/19 [History] amLODIPine Besylate [Amlodipine Besylate] 10 mg PO DAILY 11/17/19 [History] atorvaSTATin [Lipitor] 40 mg PO BEDTIME 11/17/19 [History] traMADol [Ultram] 50 mg PO Q6H PRN #15 tab 11/20/19 [Rx] Hydrocodone/Acetaminophen [Hydrocodon-Acetaminophen 5-325] 1 - 2 each PO Q6HR PRN #20 tablet 11/21/19 [Rx] Potassium Chloride 20 meq PO DAILY #30 tablet.er 11/21/19 [Rx] - CURRENT (IN HOUSE) MEDS Current Meds: Current Medications Chlorthalidone (Chlorthalidone) [address] [facility] Last Admin: 11/23/19 07:59 Dose: 25 mg Potassium Chloride/Dextrose/Sod Cl (D5 1/2 Ns W/ 20 Meq/L Kcl) 1,000 mls @ 75 mls/hr IV ASDIRECTED [facility] Last Admin: 11/23/19 20:30 Dose: 75 mls/hr Metoprolol Succinate (Toprol Xl) 12.[address] [facility] Last Admin: 11/23/19 07:59 Dose: 12.5 mg Morphine Sulfate (Morphine) 1 mg IVPUSH Q2H PRN PRN Reason: Pain Nitroglycerin (Nitrostat) 0.4 mg SL ASDIRECTED PRN PRN Reason: Chest Pain Rosuvastatin Calcium (Crestor) [address] [facility] Last Admin: 11/23/19 08:00 Dose: 10 mg Discontinued Medications Hydromorphone HCl (Dilaudid) 1 mg IVPUSH ONETIME STA Stop: 11/21/19 04:50 Last Admin: 11/21/19 05:00 Dose: 1 mg Hydromorphone HCl (Dilaudid) 0.5 mg IVPUSH ONETIME ONE Stop: 11/21/19 09:45 Last Admin: 11/21/19 09:57 Dose: 0.5 mg Hydromorphone HCl (Dilaudid) 1 mg IVPUSH ONETIME ONE Stop: 11/21/19 13:12 Last Admin: 11/21/19 13:35 Dose: 1 mg Sodium Chloride (Normal Saline) 1,000 mls @ 150 mls/hr IV ASDIRECTED [facility] Last Admin: 11/21/19 04:59 Dose: 150 mls/hr Lactated Ringer's (Ringers, Lactated) 1,000 mls @ 100 mls/hr IV ASDIRECTED [facility] Last Admin: 11/21/19 06:21 Dose: 150 mls/hr Potassium Chloride 10 meq/ (Premix) 100 mls @ 100 mls/hr IV Q1H [facility] Stop: 11/21/19 11:59 Last Admin: 11/21/19 17:15 Dose: Not Given Lactated Ringer's (Ringers, Lactated) 1,000 mls @ 100 mls/hr IV ASDIRECTED [facility] Last Admin: 11/22/19 04:01 Dose: 100 mls/hr Potassium Chloride 10 meq/ (Premix) 100 mls @ 100 mls/hr IV Q1H [facility] Stop: 11/22/19 13:14 Last Admin: 11/22/19 16:46 Dose: 40 mls/hr Sodium Chloride (Normal Saline) 500 mls @ 500 mls/hr IV .BOLUS ONE Stop: 11/23/19 09:20 Last Admin: 11/23/19 09:07 Dose: 500 mls/hr Potassium Phosphate 30 mmole/ (Sodium Chloride) 510 mls @ 102 mls/hr IV ONETIME ONE Stop: 11/23/19 13:29 Last Admin: 11/23/19 10:21 Dose: 102 mls/hr Metoclopramide HCl (Reglan) 10 mg IVPUSH ONETIME ONE Stop: 11/21/19 10:24 Last Admin: 11/21/19 10:28 Dose: 10 mg Morphine Sulfate (Morphine) 1 mg IVPUSH Q4H PRN PRN Reason: Pain (severe 7-10) Last Admin: 11/24/19 05:15 Dose: 1 mg Ondansetron HCl (Zofran) 4 mg IVPUSH ONETIME ONE Stop: 11/21/19 04:50 Last Admin: 11/21/19 04:59 Dose: 4 mg Potassium Chloride (Klor-Con M20) 20 meq PO ONETIME ONE Stop: 11/21/19 11:27 Last Admin: 11/21/19 13:10 Dose: Not Given Potassium Chloride (Potassium Chloride Solution) 60 meq PO ONETIME ONE Stop: 11/22/19 06:25 Last Admin: 11/22/19 07:05 Dose: 60 meq Regadenoson (Lexiscan) 0.4 mg IVPUSH ONETIME ONE Stop: 11/24/19 06:59 Last Admin: 11/24/19 07:04 Dose: 0.4 mg
[2019-11-24] MEDS: Rosuvastatin 10 MG Tab PO SCH (09:41)
[2019-11-24] MEDS: Chlorthalidone 25 MG Tab PO SCH (09:41)
[2019-11-24] MEDS ORDERED: Bupivacaine 0.5%/EPINEPHrine 1:200,000 50 ML MDV ONE (10:47)
[2019-11-24] MEDS: Metoprolol Succinate 25 MG Tab.ER PO SCH (11:43)
--- NOTE | 2019-11-24 12:12 | NM ---
Cardiolite cardiac scan with Lexiscan Technique: I have data stating the patient was stressed utilizing Lexiscan protocol. Stress dose of technetium 99m Cardiolite was 11.7 mCi. Rest dose was 30.8 mCi. SPECT imaging was obtained 3 planes for both portions of the study. Study was also gated. Low-dose chest CT performed to allow for attenuation correction. Comparison: No prior cardiac imaging. Findings: Activity within the left ventricular myocardium is homogeneous between rest and stress study. Ejection fraction is 70 percent. Wall thickening and wall motion is normal. Impression: 1. No abnormality is appreciated on Cardiolite portion of cardiac stress test. Diagnostic code #1 This report was dictated in MDT
[2019-11-24] MEDS ORDERED: Rocuronium 50 MG/5 ML Vial ONE (12:15)
[2019-11-24] MEDS ORDERED: Propofol 200 MG/20 ML SDV ONE (12:15)
[2019-11-24] MEDS ORDERED: Midazolam 1 MG/ML 2 ML SDV ONE (12:16)
[2019-11-24] MEDS ORDERED: fentaNYL 250 MCG/5 ML SDV ONE (12:16)
[2019-11-24] MEDS ORDERED: Lidocaine 1% 4 ML ONE (12:21)
[2019-11-24] MEDS ORDERED: Succinylcholine/Sod PF 100 MG/5 ML SYRINGE IV ONE (12:43)
[2019-11-24] MEDS ORDERED: ceFAZolin 1 GM Vial ONE (13:18)
[2019-11-24] MEDS ORDERED: HYDROmorphone 0.5 MG/0.5 ML Syringe ONE (13:38)
[2019-11-24] MEDS ORDERED: Ondansetron 4 MG/2 ML SDV ONE (14:28)
[2019-11-24] MEDS ORDERED: Lactated Ringers 1,000 ML ONE ×2 (14:30→14:34)
[2019-11-24] MEDS ORDERED: HYDROmorphone 0.5 MG/0.5 ML Syringe IVPUSH PRN (14:59)
[2019-11-24] MEDS ORDERED: Ondansetron 4 MG/2 ML SDV IVPUSH PRN ×3 (14:59→18:45)
[2019-11-24] MEDS ORDERED: Metoprolol Tartrate 5 MG/5 ML SDV ONE (15:28)
--- NOTE | 2019-11-24 15:31 | PCM.PRNOTE ---
- Free Text/Narrative Note: Date: 11/24/2019 Operation: laparoscopic adhesiolysis and incisional hernia repair with intraperitoneal mesh placement Surgeon: Lance Marquez MD Indications: symptomatic chronically incarcerated hernia at prior colostomy site Findings: 4 cm diameter circular fascial defect at prior colostomy site containing small bowel. One loop of small bowel was densely adherent to the hernia sac. The fascial defect was closed primarily, and then an elliptical biologic-coated permanent mesh measuring 10 x 15 cm was placed the reinforce the repair. Detailed Report: The patient was taken to the operating room and placed in supine position. General endotracheal anesthesia was initiated, the patient already had NG decompression established. A Martinez catheter was then placed, and the patient's right arm was tucked at his side. The abdomen was prepped with ChloraPrep, and draped in sterile fashion with Ioban dressing placed over the skin to minimize contact with the mesh. A Veress needle was inserted into the peritoneal cavity at the midclavicular line on the left side at the subcostal margin. Pneumoperitoneum was established, and air was aspirated from the site in the right upper quadrant with a needle and syringe. Once pressure was a 15 mmHg, a 5 mm bladed trocar was inserted at the site in the right upper quadrant. A 30 degree 5 mm laparoscope was inserted into the abdomen and contents were inspected. 2 additional ports were placed on the lateral right part of the abdomen, and the hernia was inspected. There was a fair amount of adhesions to the anterior abdominal wall from prior operations. The LigaSure was used for adhesio lysis which took greater than 30 minutes. The small bowel that was incarcerated in the hernia appeared healthy, and most of it was easily reduced without resistance. However 1 loop of small bowel was densely adherent to the hernia sac, requiring sharp dissection. The bowel was carefully inspected after adhesio lysis was completed to make sure there was no inadvertent enterotomy. The bowel appeared to be intact. At this point, additional 5 mm ports were placed at the left upper quadrant to give good circumferential access to the fascial defect. A 12 mm port was inserted directly over the fascial defect into the peritoneal cavity. A 15 x 10 cm elliptical mesh with biologic coating was then inserted through the 12 mm port. #1 Prolene suture had been placed at 4 quadrants the mesh prior to introduction into the abdomen. This was set aside, and the 12 mm port was removed. The PMI laparoscopic suture passer was used to place 4 interrupted #1 Prolene sutures trans-fascial he to close the defect in a transversely oriented fashion. Next, the mesh was properly aligned and measurements were made for trans-fascial sutures to be brought up through the abdominal wall. The laparoscopic suture passer was used to grasp the previously placed sutures through the mesh up through the abdominal wall. Once this was completed, the sutures were tied down and the mesh appeared to cover the primary fascial closure nicely, without folding or laxity. The laparoscopic secure strap device was then used to tack the mesh to the abdominal wall and the spaces between the trans-fascial sutures. An additional 5 mm port was placed in the left lower quadrant, providing good circumferential access to the mesh and allowing proper placement of the tacks. Under laparoscopic vision, the 5 mm ports were all removed. The left lower quadrant trocar appeared to have injured the inferior epigastric artery, and 2 trans-fascial 0 Vicryl sutures were placed in order to obtain satisfactory hemostasis. The remainder of the ports were removed without any issue. Pneumoperitoneum was released, and all incision sites were closed at the level of the skin with 4-0 Vicryl suture. Wounds were dressed with Dermabond. Throughout the case, a total of 30 cc of 0.5% Marcaine with epinephrine was used for local anesthetic at incision sites. The patient tolerated the operation well. Lance Marquez MD General Surgery
[2019-11-24] MEDS: fentaNYL 100 MCG/2 ML SDV IVPUSH PRN ×2 (15:38→16:38)
--- NOTE | 2019-11-24 15:41 | PCM.POSTAN ---
POST ANESTHESIA ASSESSMENT - MENTAL STATUS Mental Status: Somnolent - VITAL SIGNS Vital Signs: initial VSs were 198/108, HR 110, RR 18, SpO2 100% T;99.6 F. Last Vital Signs Temp 98.1 F 11/24/19 15:35 Pulse 68 11/24/19 12:20 Resp 21 H 11/24/19 15:35 BP 187/110 H 11/24/19 15:35 Pulse Ox 100 11/24/19 15:35 - RESPIRATORY Respiratory Status: Respiratory Rate WNL, Airway Patent (oral a/w #100), O2 Saturation Stable, Supplemental Oxygen - CARDIOVASCULAR CV Status: Elevated Pulse Rate, Elevated Blood Pressure (Metoprolol 5 mg IV given) - GASTROINTESTINAL GI Status: No Symptoms - PAIN Pain Score: 5 - POST OP HYDRATION Hydration Status: Adequate & Stable
[2019-11-24] MEDS ORDERED: Promethazine 12.5 MG in Sodium Chloride 0.9% 50 ML IV PRN (18:35)
[2019-11-24] MEDS ORDERED: Ketorolac 15 MG/ML SDV IVPUSH ONE (19:16)
[2019-11-24] MEDS: D5 1/2 NS w/ 20 mEq/L KCl 1,000 ML IV SCH (20:07)
[2019-11-24] MEDS: Acetaminophen 325 MG Tab PO SCH (20:08)
[2019-11-24] MEDS ORDERED: diphenhydrAMINE 50 MG/ML SDV IVPUSH PRN (20:16)
[2019-11-25] MEDS: Morphine 2 MG/ML Syringe IVPUSH PRN ×3 (01:05→07:45)
[2019-11-25] MEDS: Acetaminophen 325 MG Tab PO SCH ×4 (01:53→19:58)
[2019-11-25] MEDS ORDERED: HYDROmorphone 0.5 MG/0.5 ML Syringe IVPUSH ONE (08:32)
[2019-11-25] MEDS ORDERED: oxyCODONE 5 MG Tab PO PRN (08:32)
[2019-11-25] MEDS: Chlorthalidone 25 MG Tab PO SCH (08:51)
[2019-11-25] MEDS: Metoprolol Succinate 25 MG Tab.ER PO SCH (08:52)
[2019-11-25] MEDS: Clopidogrel 75 MG Tab PO SCH (08:58)
[2019-11-25] MEDS: Rosuvastatin 10 MG Tab PO SCH (08:58)
[2019-11-25] MEDS: Aspirin 81 MG Tab.EC PO SCH (08:59)
[2019-11-25] MEDS ORDERED: Potassium Phosphates 30 MMOLE in Sodium Chloride 0.9% 500 ML IV SCH ×2 (09:00→15:30)
[2019-11-25] MEDS ORDERED: Magnesium Sulfate/Water 2 GM in Premix Bag 1 BAG IV ONE (09:00)
--- NOTE | 2019-11-25 09:09 | PCM.SN ---
- Free Text/Narrative Note: POD 1 s/p laparoscopic incisional hernia repair S: pain poorly controlled overnight. No nausea, passing flatus. Urinary retention with scan showing >600 cc. I&O cath with 800 cc urine out. No void since that time, 0200. O: Afebrile. Bradycardia to 40s bpm overnight recorded, otherwise vitals normal, currently normal with supplemental O2 via nasal cannula. Abdomen soft, appropriately tender Labs reviewed; slight hypokalemia and hypomagnesemia and CR up to 1.7 from 1.5. A: Overall looking okay, though pain is poorly controlled. High risk for post-op pulmonary complications given heavy smoking history. Issue with urinary retention overnight. P: switch to dilaudid 0.5 mg IV q3h prn, with scheduled tylenol and oxycodone 5 mg q6 prn for additional pain control restart all home medications including aspirin and plavix IS, OOB, PT/OT consult continue maintenance IV fluids, replenish K+, Mg++ regular diet urinary retention: repeat bladder scan now, if > 500 cc, replace swann for decompression due to concern for bladder stretch injury SCD for dvt ppx
[2019-11-25] MEDS: amLODIPine 10 MG Tab PO SCH (09:23)
--- NOTE | 2019-11-25 10:10 | PCM48HPAN ---
Post Anesthesia Note - EVALUATION WITHIN 48HRS OF ANESTHETIC Vital Signs in Normal Range: Yes Patient Participated in Evaluation: Yes Respiratory Function Stable: Yes Airway Patent: Yes Cardiovascular Function Stable: Yes Hydration Status Stable: Yes Pain Control Satisfactory: No (still c/o pain >6 when moving) Nausea and Vomiting Control Satisfactory: Yes Mental Status Recovered: Yes Vital Signs: Last Vital Signs Temp 98.2 F 11/25/19 07:48 Pulse 72 11/25/19 08:52 Resp 16 11/25/19 07:48 BP 130/81 11/25/19 09:23 Pulse Ox 94 L 11/25/19 07:53 - COMMENTS/OBSERVATIONS Free Text/Narrative:: Patient is on his postoperative day 1. Patient is still c/o severe incisional pain, reviewing analgetics regimen.
[2019-11-25] MEDS: D5 1/2 NS w/ 20 mEq/L KCl 1,000 ML IV SCH ×2 (10:14→23:21)
[2019-11-25] MEDS ORDERED: Lidocaine 1% 6 ML ONE (10:18)
[2019-11-25] MEDS ORDERED: Ropivacaine 0.5% 5 MG/ML 30 ML SDV ONE (10:19)
[2019-11-25] MEDS ORDERED: Lidocaine 2% with EPINEPHrine 1:200,000 20 ML SDV ONE (10:30)
--- NOTE | 2019-11-25 11:52 | PCM.PRNOTE ---
- Free Text/Narrative Note: Postoperative regional pain control requested by surgeon. Pre-op Dx: Incisional hernia Post-op Rx: Laparoscopic incisional hernia repair with Mesh Procedure: Left Transversus abdominis plane block U/S guidance Requesting physician: Dr. Lance Marquez Patient has been experiencing significant postoperative pain requiring high amounts of opioid analgetics on his first postoperative day. Patient has been offered a regional block per discussion with the surgeon. Risks and benefits discussed with the patient including infection, bleeding, incomplete or failed block, possible local anesthetic toxicity. Vital signs reviewed. Permit signed. Patient is in room 14, stable , alert and awake. Positioned in right semi- decubitus. Time out performed at 11:06. Left abdominal wall at T10-T11 dermatomes was prepped with Chloraprep x 1 and allowed to dry. Under aseptic technique, the layers of external oblique, internal oblique and transversus abdominis muscles as well as parietal pertoneum were identified under ultrasound prior to needle insertion. Local infiltration with 2% Lidocaine. 4" Stimuplex needle #22 G was inserted under US guidance. Normal saline was used in a stopcock to visualize the spread of the fluid and separation of muscle layers. Under direct visualization the injection of 0.5% Ropivacaine with 1: 200k epinephrine, total of 30 mls in divided doses, mixed with additional 10 mls of 2% Lidocaine with 1:200k epinephrine (total of 40 mls) was completed without problems. Negative aspiration was maintained and checked every 5 mls of incremental injection of local anesthetic. No local anesthetic toxicity was noted. Patient is awake, stable and tolerated the procedure well. Time: 11:06 - 11:17 Nicho Plummer CRNA Please see attached U/S pictures.
[2019-11-25] MEDS: HYDROmorphone 0.5 MG/0.5 ML Syringe IVPUSH PRN ×2 (12:18→19:56)
[2019-11-25] MEDS: Benzocaine/Cetylpyridinium/Menthol Lozenge MUCMEM PRN ×2 (13:27→15:40)
[2019-11-25] MEDS ORDERED: Potassium Phosphates 30 MMOLE in Sodium Chloride 0.9% 500 ML IV ONE (15:45)
--- NOTE | 2019-11-25 16:57 | PCM.SN ---
- Free Text/Narrative Note: Pain somewhat improved at the time of afternoon rounds after changes made today. Voiding small amounts frequently. Repeat bladder scan at this time shows evidence of retention with volume > 700cc- plan to leave indwelling swann for retention/bladder stretch injury and start tamsulosin. This patient has required inpatient hospitalization for over 96 hours due to an incarcerated incisional hernia with some obstructive symptoms. He needed medical optimization prior to surgery including holding of anti-platelet medication, providing NG decompression, and completing pre-operative cardiac workup including stress test. Post-operatively, we need to continue to work on pain control and getting the patient ambulatory and off supplemental oxygen prior to discharge home.
[2019-11-25] MEDS: traMADol 50 MG Tab PO PRN ×2 (17:09→23:53)
[2019-11-25] MEDS: Nicotine 14 MG/24 Hr Patch TRDERM SCH (17:29)
[2019-11-26] MEDS: Acetaminophen 325 MG Tab PO SCH ×3 (01:34→14:27)
[2019-11-26] MEDS: HYDROmorphone 0.5 MG/0.5 ML Syringe IVPUSH PRN ×2 (01:36→05:19)
[2019-11-26] MEDS: Benzocaine/Cetylpyridinium/Menthol Lozenge MUCMEM PRN (01:38)
[2019-11-26] MEDS ORDERED: HYDROmorphone 2 MG Tab PO PRN (08:11)
--- NOTE | 2019-11-26 08:16 | PCM.SN ---
- Free Text/Narrative Note: POD 2 laparoscopic incisional hernia repair S: pain much better controlled. Off supplemental oxygen, sitting in chair. Passing flatus, stool, tolerating PO intake. Swann replaced for urinary retention with 650 cc. O: AF-VSS BMP pending abdomen soft, appropriately tender Swann in place with clear yellow urine output A: Doing much better today, wants to go home which I think may be feasible this afternoon. P: PT/OT eval pending IS, OOB ambulating D/C IV fluids, IV medication Start prn hydromorphone PO Add miralax 17 g qd flomax 0.4 mg qd, plan for d/c home with swann in place with plan for follow up in urology clinic in about one week Anticipate discharge to home this afternoon if all looks good
[2019-11-26] MEDS: Nicotine 14 MG/24 Hr Patch TRDERM SCH (09:05)
[2019-11-26] MEDS: Chlorthalidone 25 MG Tab PO SCH (09:07)
[2019-11-26] MEDS: Clopidogrel 75 MG Tab PO SCH (09:08)
[2019-11-26] MEDS: Metoprolol Succinate 25 MG Tab.ER PO SCH (09:08)
[2019-11-26] MEDS: Rosuvastatin 10 MG Tab PO SCH (09:08)
[2019-11-26] MEDS: amLODIPine 10 MG Tab PO SCH (09:10)
[2019-11-26] MEDS: Aspirin 81 MG Tab.EC PO SCH (09:10)
[2019-11-26] MEDS ORDERED: Tamsulosin 0.4 MG Cap.ER PO SCH (10:00)
[2019-11-26] MEDS ORDERED: Polyethylene Glycol 3350 Powder 17 GM Packet PO SCH (10:45)
--- NOTE | 2019-11-26 14:47 | PCM.DCSUM1 ---
Discharge Summary - Hospital Course Free Text/Narrative:: Mr. Vance is a 64 yo man who presented to the emergency room over one week ago with a painful incarcerated incisional hernia at prior colostomy site. Without signs of bowel ischemia, a plan was made for operative repair a week later after holding his dual antiplatelet therapy. However, his symptoms persisted and he had some nausea, vomiting and obstipation. He was admitted, and an NG tube was placed for decompression. He had an echocardiogram and stress test as part of a pre-operative workup, which revealed no abnormality. He was taken to the operating room 11/23 for laparoscopic incisional hernia repair with permanent mesh placement. Significant post-operative pain was an issue, and a TAP block was attempted. This provided little relief, but adjustments were made with his analgesia and on POD day 2 he was in much better shape. He had urinary retention after surgery, and an in and out catheterization several hours after surgery yielded about 700 cc urine. Though he voided frequently with small amounts afterwards, repeat bladder scan with ultrasound showed ongoing retention (volume ~700cc) and the catheter was replaced for decompression/ treatment of stretch injury. Tamsulosin was started. Otherwise, his post- operative recovery was uneventful. He was weaned off supplemental oxygen, able to tolerate a diet, had a bowel movement, and ambulated without problems. He was evaluated by physical therapy and occupational therapy. He was deemed fit for discharge to home on post-operative day 2, with plan for follow up in the [place] [facility] clinic for Martinez catheter removal and trial of void in one week. Diagnosis: Stroke: No - Discharge Data Discharge Date: 11/26/19 Discharge Disposition: Home, Self-Care 01 Condition: Good - Referral to Home Health Primary Care Physician: John Sánchez MD - Patient Summary/Data Operative Procedure(s) Performed: laparoscopic incisional hernia repair, with primary fascial closure and permanent intraperitoneal onlay mesh Consults: Consultations 11/25/19 08:44 Consult to Physical Therapy [PT Evaluation and Treatment] [CONS] Routine 11/25/19 08:45 Consult to Occupational Therapy [OT Evaluation and Treatment] [CONS] Routine - Patient Instructions Diet: Usual Diet as Tolerated Activity: As Tolerated, No Lifting Over 10 Pounds Showering/Bathing: December Shower Wound/Incision Care: Keep Operative Site/Wound Site Clean and Dry Notify Provider of: Fever, Increased Pain, Swelling and Redness, Drainage, Nausea and/or Vomiting - Discharge Plan *PRESCRIPTION DRUG MONITORING PROGRAM REVIEWED*: Not Applicable *COPY OF PRESCRIPTION DRUG MONITORING REPORT IN PATIENT SANDEEP: Not Applicable Prescriptions/Med Rec: Hydrocodone/Acetaminophen [Hydrocodon-Acetaminophen 5-325] 1 - 2 each PO Q6HR PRN #20 tablet PRN Reason: Pain HYDROmorphone [Dilaudid] 2 mg PO Q4H PRN #15 tab PRN Reason: Pain Potassium Chloride 20 meq PO DAILY #30 tablet.er Tamsulosin [Flomax] 0.4 mg PO DAILY #20 cap.er Home Medications: Home Meds Aspirin [Ecotrin EC] 81 mg PO DAILY 11/22/18 [History] Chlorthalidone 25 mg PO DAILY 11/17/19 [History] Clopidogrel [Plavix] 75 mg PO DAILY 11/17/19 [History] Metoprolol Succinate [Toprol XL] 12.5 mg PO DAILY 11/17/19 [History] Nitroglycerin [Nitrostat] 0.4 mg SL ASDIRECTED PRN 11/17/19 [History] amLODIPine Besylate [Amlodipine Besylate] 10 mg PO DAILY 11/17/19 [History] atorvaSTATin [Lipitor] 40 mg PO BEDTIME 11/17/19 [History] traMADol [Ultram] 50 mg PO Q6H PRN #15 tab 11/20/19 [Rx] Hydrocodone/Acetaminophen [Hydrocodon-Acetaminophen 5-325] 1 - 2 each PO Q6HR PRN #20 tablet 11/21/19 [Rx] Potassium Chloride 20 meq PO DAILY #30 tablet.er 11/21/19 [Rx] HYDROmorphone [Dilaudid] 2 mg PO Q4H PRN #15 tab 11/26/19 [Rx] Tamsulosin [Flomax] 0.4 mg PO DAILY #20 cap.er 11/26/19 [Rx] Oxygen Therapy Mode: Room Air Patient Handouts: Hernia, Adult, [id number], Steps to Quit Smoking Forms: ED Department Discharge Referrals: Steve Cornejo MD [Consulting Physician] - John Sánchez MD [Primary Care Provider] - Lance Marquez MD [Physician] - - Discharge Summary/Plan Comment DC Time >30 min.: Yes - Patient Data Vitals - Most Recent: Last Vital Signs Temp 36.7 C 11/26/19 11:40 Pulse 70 11/26/19 11:40 Resp 16 11/26/19 09:04 BP 127/91 H 11/26/19 11:40 Pulse Ox 92 L 11/26/19 11:40 Weight - Most Recent: 89.494 kg I&O - Last 24 hours: Intake & Output 11/25/19 11/26/19 11/26/19 22:59 06:59 14:59 Intake Total 1076 3250 60 Output Total 1300 1600 Balance -224 1650 60 Lab Results - Last 24 hrs: Laboratory Results - last 24 hr 11/26/19 Range/Units 09:25 Sodium 130 L (136-145) mEq/L Potassium 3.2 L (3.5-5.1) mEq/L Chloride 91 L (98-107) mEq/L Carbon Dioxide 28 (21-32) mEq/L Anion Gap 14.2 (5-15) BUN 11 (7-18) mg/dL Creatinine 1.4 H (0.7-1.3) mg/dL Est Cr Clr Drug Dosing 51.90 mL/min Estimated GFR (MDRD) 51 (>60) mL/min BUN/Creatinine Ratio 7.9 L (14-18) Glucose 141 H (80-115) mg/dL Calcium 8.8 (8.5-10.1) mg/dL Med Orders - Current: Current Medications Acetaminophen (Tylenol) 650 mg PO Q6H [facility] Last Admin: 11/26/19 14:27 Dose: 650 mg Amlodipine Besylate (Norvasc) 10 mg PO DAILY [facility] Last Admin: 11/26/19 09:10 Dose: 10 mg Aspirin (Halfprin) 81 mg PO DAILY [facility] Last Admin: 11/26/19 09:10 Dose: 81 mg Benzocaine/Menthol (Cepacol Sore Throat) 1 lozenge MUCMEM Q2HR PRN PRN Reason: Throat Irritation Last Admin: 11/26/19 01:38 Dose: 1 lozenge Chlorthalidone (Chlorthalidone) 25 mg PO DAILY [facility] Last Admin: 11/26/19 09:07 Dose: 25 mg Clopidogrel Bisulfate (Plavix) 75 mg PO DAILY [facility] Last Admin: 11/26/19 09:08 Dose: 75 mg Diphenhydramine HCl (Benadryl) 25 mg IVPUSH BEDTIME PRN PRN Reason: Sleep Last Admin: 11/25/19 01:06 Dose: 25 mg Hydromorphone HCl (Dilaudid) 2 mg PO Q6H PRN PRN Reason: Pain Last Admin: 11/26/19 11:38 Dose: 2 mg Promethazine HCl 12.5 mg/ (Sodium Chloride) 50.5 mls @ 100 mls/hr IV Q6H PRN PRN Reason: Nausea Metoprolol Succinate (Toprol Xl) 12.5 mg PO DAILY [facility] Last Admin: 11/26/19 09:08 Dose: 12.5 mg Miscellaneous Information (Remove Patch) 0 ea TRDERM DAILY [facility] Last Admin: 11/26/19 09:12 Dose: Not Given Nicotine (Habitrol) 14 mg TRDERM DAILY [facility] Last Admin: 11/26/19 09:05 Dose: Not Given Nitroglycerin (Nitrostat) 0.4 mg SL ASDIRECTED PRN PRN Reason: Chest Pain Ondansetron HCl (Zofran) 4 mg IVPUSH Q6H PRN PRN Reason: Nausea Polyethylene Glycol (Miralax) 17 gm PO DAILY [facility] Last Admin: 11/26/19 10:51 Dose: 17 gm Rosuvastatin Calcium (Crestor) 10 mg PO DAILY [facility] Last Admin: 11/26/19 09:08 Dose: 10 mg Tamsulosin HCl (Flomax) 0.4 mg PO PCBREAKFAST [facility] Last Admin: 11/26/19 09:08 Dose: 0.4 mg Tramadol HCl (Ultram) 50 mg PO Q6H PRN PRN Reason: Pain Last Admin: 11/25/19 23:53 Dose: 50 mg Discontinued Medications Bupivacaine HCl/Epinephrine Bitart (Marcaine 0.5%/Epinephrine 1:200,000) Confirm Administered Dose 50 ml .ROUTE .STK-MED ONE Stop: 11/24/19 10:48 Last Admin: 11/24/19 13:23 Dose: 30 ml Cefazolin Sodium (Ancef) Confirm Administered Dose 2 gm .ROUTE .STK-MED ONE Stop: 11/24/19 13:19 Fentanyl (Sublimaze) Confirm Administered Dose 250 mcg .ROUTE .STK-MED ONE Stop: 11/24/19 12:17 Fentanyl (Sublimaze) 100 mcg IVPUSH Q5M PRN PRN Reason: Pain Last Admin: 11/24/19 16:38 Dose: 100 mcg Glycopyrrolate () Confirm Administered Dose 1 mg .ROUTE .STK-MED ONE Stop: 11/24/19 15:03 Hydromorphone HCl (Dilaudid) 1 mg IVPUSH ONETIME STA Stop: 11/21/19 04:50 Last Admin: 11/21/19 05:00 Dose: 1 mg Hydromorphone HCl (Dilaudid) 0.5 mg IVPUSH ONETIME ONE Stop: 11/21/19 09:45 Last Admin: 11/21/19 09:57 Dose: 0.5 mg Hydromorphone HCl (Dilaudid) 1 mg IVPUSH ONETIME ONE Stop: 11/21/19 13:12 Last Admin: 11/21/19 13:35 Dose: 1 mg Hydromorphone HCl (Dilaudid) Confirm Administered Dose 0.5 mg .ROUTE .STK-MED ONE Stop: 11/24/19 13:39 Hydromorphone HCl (Dilaudid) 0.5 mg IVPUSH Q10M PRN PRN Reason: Pain (severe 7-10) Last Admin: 11/24/19 16:18 Dose: 0.5 mg Hydromorphone HCl (Dilaudid) 0.5 mg IVPUSH ONETIME ONE Stop: 11/25/19 08:33 Last Admin: 11/25/19 08:43 Dose: 0.5 mg Hydromorphone HCl (Dilaudid) 0.5 mg IVPUSH Q3H PRN PRN Reason: Pain Last Admin: 11/26/19 05:19 Dose: 0.5 mg Sodium Chloride (Normal Saline) 1,000 mls @ 150 mls/hr IV ASDIRECTED [facility] Last Admin: 11/21/19 04:59 Dose: 150 mls/hr Lactated Ringer's (Ringers, Lactated) 1,000 mls @ 100 mls/hr IV ASDIRECTED [facility] Last Admin: 11/21/19 06:21 Dose: 150 mls/hr Potassium Chloride 10 meq/ (Premix) 100 mls @ 100 mls/hr IV Q1H [facility] Stop: 11/21/19 11:59 Last Admin: 11/21/19 17:15 Dose: Not Given Lactated Ringer's (Ringers, Lactated) 1,000 mls @ 100 mls/hr IV ASDIRECTED [facility] Last Admin: 11/22/19 04:01 Dose: 100 mls/hr Potassium Chloride/Dextrose/Sod Cl (D5 1/2 Ns W/ 20 Meq/L Kcl) 1,000 mls @ 75 mls/hr IV ASDIRECTED [facility] Last Admin: 11/25/19 23:21 Dose: 75 mls/hr Potassium Chloride 10 meq/ (Premix) 100 mls @ 100 mls/hr IV Q1H [facility] Stop: 11/22/19 13:14 Last Admin: 11/22/19 16:46 Dose: 40 mls/hr Sodium Chloride (Normal Saline) 500 mls @ 500 mls/hr IV .BOLUS ONE Stop: 11/23/19 09:20 Last Admin: 11/23/19 09:07 Dose: 500 mls/hr Potassium Phosphate 30 mmole/ (Sodium Chloride) 510 mls @ 102 mls/hr IV ONETIME ONE Stop: 11/23/19 13:29 Last Admin: 11/23/19 10:21 Dose: 102 mls/hr Lidocaine HCl (Xylocaine-Mpf 1%) Confirm Administered Dose 4 mls @ as directed .ROUTE .STK-MED ONE Stop: 11/24/19 12:22 Lactated Ringer's (Ringers, Lactated) Confirm Administered Dose 1,000 mls @ as directed .ROUTE .STK-MED ONE Stop: 11/24/19 14:31 Lactated Ringer's (Ringers, Lactated) Confirm Administered Dose 1,000 mls @ as directed .ROUTE .STK-MED ONE Stop: 11/24/19 14:35 Magnesium Sulfate/Dextrose 1 (gm/ Premix) 0 mls @ 100 mls/hr IV Q1H [facility] Stop: 11/25/19 09:46 Last Admin: 11/25/19 18:49 Dose: Not Given Potassium Phosphate 30 mmole/ (Sodium Chloride) 510 mls @ 102 mls/hr IV ASDIRECTED [facility] Stop: 11/25/19 13:59 Magnesium Sulfate 2 gm/ Premix 50 mls @ 25 mls/hr IV ONETIME ONE Stop: 11/25/19 10:59 Last Admin: 11/25/19 09:31 Dose: 25 mls/hr Lidocaine HCl (Xylocaine-Mpf 1%) Confirm Administered Dose 6 mls @ as directed .ROUTE .STK-MED ONE Stop: 11/25/19 10:19 Potassium Phosphate 30 mmole/ (Sodium Chloride) 510 mls @ 102 mls/hr IV ONETIME ONE Stop: 11/25/19 20:44 Last Admin: 11/25/19 15:42 Dose: 102 mls/hr Ketorolac Tromethamine (Toradol) 15 mg IVPUSH ONETIME ONE Stop: 11/24/19 19:17 Last Admin: 11/24/19 20:05 Dose: 15 mg Lidocaine/Epinephrine (Xylocaine-Mpf 2%-Epi 1:200,000) 20 ml .ROUTE .STK-MED ONE Stop: 11/25/19 10:31 Metoclopramide HCl (Reglan) 10 mg IVPUSH ONETIME ONE Stop: 11/21/19 10:24 Last Admin: 11/21/19 10:28 Dose: 10 mg Metoprolol Tartrate (Lopressor) Confirm Administered Dose 5 mg .ROUTE .STK-MED ONE Stop: 11/24/19 15:29 Midazolam HCl (Versed 1 Mg/Ml) Confirm Administered Dose 2 mg .ROUTE .STK-MED ONE Stop: 11/24/19 12:17 Miscellaneous Medication (Phenylephrine 1 Mg/10 Ml-Ns) Confirm Administered Dose 1 mg IV .STK-MED ONE Stop: 11/24/19 13:33 Morphine Sulfate (Morphine) 1 mg IVPUSH Q4H PRN PRN Reason: Pain (severe 7-10) Last Admin: 11/24/19 05:15 Dose: 1 mg Morphine Sulfate (Morphine) 1 mg IVPUSH Q2H PRN PRN Reason: Pain Last Admin: 11/25/19 07:45 Dose: 1 mg Neostigmine Methylsulfate (Neostigmine Methylsulfate) Confirm Administered Dose 5 mg .ROUTE .STK-MED ONE Stop: 11/24/19 15:03 Ondansetron HCl (Zofran) 4 mg IVPUSH ONETIME ONE Stop: 11/21/19 04:50 Last Admin: 11/21/19 04:59 Dose: 4 mg Ondansetron HCl (Zofran) Confirm Administered Dose 8 mg .ROUTE .STK-MED ONE Stop: 11/24/19 14:29 Ondansetron HCl (Zofran) 4 mg IVPUSH ONETIME PRN PRN Reason: Nausea/Vomiting Last Admin: 11/24/19 18:22 Dose: 4 mg Ondansetron HCl (Zofran) 4 mg IVPUSH Q6HR PRN PRN Reason: Nausea Oxycodone HCl (Oxycodone) 5 mg PO Q6H PRN PRN Reason: Abdominal Pain Potassium Chloride (Klor-Con M20) 20 meq PO ONETIME ONE Stop: 11/21/19 11:27 Last Admin: 11/21/19 13:10 Dose: Not Given Potassium Chloride (Potassium Chloride Solution) 60 meq PO ONETIME ONE Stop: 11/22/19 06:25 Last Admin: 11/22/19 07:05 Dose: 60 meq Propofol (Diprivan 20 Ml) Confirm Administered Dose 200 mg .ROUTE .STK-MED ONE Stop: 11/24/19 12:16 Regadenoson (Lexiscan) 0.4 mg IVPUSH ONETIME ONE Stop: 11/24/19 06:59 Last Admin: 11/24/19 07:04 Dose: 0.4 mg Rocuronium [place] (Zemuron) Confirm Administered Dose 50 mg .ROUTE .STK-MED ONE Stop: 11/24/19 12:16 Ropivacaine (Naropin 0.5%) Confirm Administered Dose 30 ml .ROUTE .STK-MED ONE Stop: 11/25/19 10:20 *Q Meaningful Use (DIS) - VTE *Q VTE Pharmacological Contraindications *Q: Risk of Bleeding
== END 2019-11-26 16:20 | disposition home or self-care (01) | DRG 336 ==
LOC: JD.ED 04:19 → JD.MS 12:23
PROVIDERS: ADMIT Surgery; ATTEND Surgery
PROC: 0DN84ZZ Release Small Intestine, Percutaneous Endoscopic Approach (ICD-10-PCS; principal; 2019-11-24)
PROC: 0WUF4JZ Supplement Abdominal Wall with Synthetic Substitute, Percutaneous Endoscopic Approach (ICD-10-PCS; 2019-11-24)
DX: K46.9 Unspecified abdominal hernia without obstruction or gangrene (principal); K43.0 Incisional hernia with obstruction, without gangrene; E87.1 Hypo-osmolality and hyponatremia; E78.00 Pure hypercholesterolemia, unspecified; Z90.49 Acquired absence of other specified parts of digestive tract; N40.0 Benign prostatic hyperplasia without lower urinary tract symptoms; E66.9 Obesity, unspecified; N18.9 Chronic kidney disease, unspecified; I12.9 Hypertensive chronic kidney disease with stage 1 through stage 4 chronic kidney disease, or unspecified chronic kidney disease; Z95.828 Presence of other vascular implants and grafts; F17.200 Nicotine dependence, unspecified, uncomplicated; Z79.02 Long term (current) use of antithrombotics/antiplatelets; E87.6 Hypokalemia; R33.9 Retention of urine, unspecified; Z68.30 Body mass index [BMI] 30.0-30.9, adult; Z79.82 Long term (current) use of aspirin; Z79.899 Other long term (current) drug therapy; Z68.32 Body mass index [BMI] 32.0-32.9, adult
CPT/HCPCS: 36415; 71046; 74177; 80053; 82728; 83605; 83615; 85007; 85027; 86140; 96361; 96365; 96366; 96375; 96376; 99285; J1170 ×2; J2405; J2765; J3480 ×3; J7030; J7120; 00790; 51701; 51702; 51798; 78452; 78452-26; 80048; 83735; 84100; 85025; 93017; 97110-GP; 97161-GP; 97165-GO; 97535-GO; A9270-GY; A9500; C1781; J0330; J0690; J1200; J1885; J2001; J2250; J2270; J2370; J2704; J2710; J2785; J2795; J3010; J3475; J3490; J7040

== ENCOUNTER 2019-11-28 23:53 | Observation (INO) | payer MEDICARE, BC ==
--- NOTE | 2019-11-29 00:43 | EDM.PDOC ---
ED HPI GENERAL MEDICAL PROBLEM - General Chief Complaint: Abdominal Pain Stated Complaint: RECENT SURGERY BLOOD IN URINE EXTREME PAIN Time Seen by Provider: 11/28/19 23:57 Source of Information: Reports: Patient History Limitations: Reports: No Limitations - History of Present Illness INITIAL COMMENTS - FREE TEXT/NARRATIVE: TRIAGE NOTE --pt had an incacerated abdominal hernia that was repaired by Dr. Ron on Sunday. States has had pain since but today has been worse. States has not had a BM since Sunday. today has small amount of stool and gas after taking miralax. Pt also noticed hematuria as well. As above. No fever. No vomiting. Abdominal pain is what brought the patient to the hospital. He has been taking Dilaudid at home for his pain. He has an indwelling Martinez. Some blood has been noted. Recent surgery as noted. Patient has not taken anything other than prescribed medications including the Dilaudid and nothing otherwise to moderate symptoms. Risk factors would include the recent surgery and overall poor condition of the patient. Patient is noted to be a cigarette smoker. Abdomen Pain Score (Numeric/FACES): 6 - Related Data Allergies Allergy/AdvReac Type Severity Reaction Status Date / Time No Known Allergies Allergy Verified 11/29/19 00:03 Home Meds: Home Meds Aspirin [Ecotrin EC] 81 mg PO DAILY 11/22/18 [History] Chlorthalidone 25 mg PO DAILY 11/17/19 [History] Clopidogrel [Plavix] 75 mg PO DAILY 11/17/19 [History] Metoprolol Succinate [Toprol XL] 12.5 mg PO DAILY 11/17/19 [History] Nitroglycerin [Nitrostat] 0.4 mg SL ASDIRECTED PRN 11/17/19 [History] amLODIPine Besylate [Amlodipine Besylate] 10 mg PO DAILY 11/17/19 [History] atorvaSTATin [Lipitor] 40 mg PO BEDTIME 11/17/19 [History] Potassium Chloride 20 meq PO DAILY #30 tablet.er 11/21/19 [Rx] HYDROmorphone [Dilaudid] 2 mg PO Q4H PRN #15 tab 11/26/19 [Rx] Tamsulosin [Flomax] 0.4 mg PO DAILY #20 cap.er 11/26/19 [Rx] Past Medical History HEENT History: Reports: Hard of Hearing, Impaired Vision, Other (See Below) Other HEENT History: upper/lower denture, wears glasses Cardiovascular History: Reports: Aneurysm, High Cholesterol, Hypertension Gastrointestinal History: Reports: Diverticulosis Genitourinary History: Reports: BPH, Chronic Renal Insuffiency Musculoskeletal History: Reports: Back Pain, Chronic Endocrine/Metabolic History: Reports: Obesity/BMI 30+ - Infectious Disease History Infectious Disease History: Reports: Chicken Pox, Measles, Mumps - Past Surgical History HEENT Surgical History: Reports: Myringotomy w Tube(s), Oral Surgery Cardiovascular Surgical History: Reports: AAA Repair GI Surgical History: Reports: Colon, Colostomy, Hernia, Abdominal Other GI Surgeries/Procedures: x3 Musculoskeletal Surgical History: Reports: Carpal Tunnel Social & Family History - Family History Family Medical History: Noncontributory - Tobacco Use Smoking Status *Q: Current Every Day Smoker - Caffeine Use Caffeine Use: Reports: Soda Other Caffeine Use: 4 cans/day - Living Situation & Occupation Living situation: Reports: , with Spouse, with Family (2 adult kids) Occupation: Retired ED ROS GENERAL - Review of Systems Review Of Systems: Comprehensive ROS is negative, except as noted in HPI. ED EXAM, GI/ABD - Physical Exam Exam: See Below Exam Limited By: No Limitations General Appearance: Alert, No Apparent Distress (Looks miserable) Eyes: Bilateral: EOMI Ears: Normal External Exam Nose: Normal Inspection Throat/Mouth: Normal Inspection Head: Atraumatic, Normocephalic Neck: Normal Inspection, Supple Respiratory/Chest: No Respiratory Distress, Lungs Clear Cardiovascular: Regular Rate, Rhythm GI/Abdominal Exam: Other (Abdomen is protuberant and quite tender. There is some guarding. Surgery wounds appear clean and healing.) Back Exam: Normal Inspection Extremities: Non-Tender, No Pedal Edema Neurological: Alert, Oriented, Normal Cognition Psychiatric: Normal Affect Skin Exam: Warm, Dry Course - Vital Signs Last Recorded V/S: Last Vital Signs Temp 37.1 C 11/29/19 00:04 Pulse 92 11/29/19 00:04 Resp 19 11/29/19 00:04 BP 156/89 H 11/29/19 00:04 Pulse Ox 94 L 11/29/19 00:04 - Orders/Labs/Meds Orders: Active Orders 24 hr Category Date Time Status Abdomen Pelvis wo Cont [CT] Stat Exams 11/29/19 02:11 Taken CULTURE URINE [RM] Stat Lab 11/29/19 01:30 Received Potassium Chloride [KCl 10 MEQ in Water 100 ML] 10 meq Med 11/29/19 02:15 Active Premix Bag 1 bag IV ASDIRECTED Sodium Chloride 0.9% [Normal Saline] 1,000 ml Med 11/29/19 02:30 Active IV ASDIRECTED Medication Orders Potassium Chloride 10 meq/ (Premix) 100 mls @ 100 mls/hr IV ASDIRECTED [facility] Last Admin: 11/29/19 02:32 Dose: 100 mls/hr Sodium Chloride (Normal Saline) 1,000 mls @ 75 mls/hr IV ASDIRECTED [facility] Last Admin: 11/29/19 02:32 Dose: 75 mls/hr Labs: Laboratory Tests 11/29/19 11/29/19 11/29/19 Range/Units 01:10 01:10 01:10 WBC 7.56 (4.23-9.07) K/mm3 RBC 4.86 (4.63-6.08) M/mm3 Hgb 14.1 D (13.7-17.5) gm/dl Hct 39.9 L (40.1-51.0) % MCV 82.1 D (79.0-92.2) fl MCH 29.0 (25.7-32.2) pg MCHC 35.3 (32.2-35.5) g/dl RDW Std Deviation 37.7 (35.1-43.9) fL Plt Count 272 D (163-337) K/mm3 MPV 8.0 L (9.4-12.3) fl Neutrophils % (Manual) 70 H (40-60) % Band Neutrophils % 0 (0-10) % Lymphocytes % (Manual) 21 (20-40) % Atypical Lymphs % 0 % Monocytes % (Manual) 6 (2-10) % Eosinophils % (Manual) 2 (0.8-7.0) % Basophils % (Manual) 1 (0.2-1.2) Platelet Estimate Adequate RBC Morph Comment Normal PT 10.1 (9.7-12.0) SECONDS INR 0.93 APTT 29 (22-31) SECONDS Sodium 128 L (136-145) mEq/L Potassium 2.9 L (3.5-5.1) mEq/L Chloride 90 L (98-107) mEq/L Carbon Dioxide 28 (21-32) mEq/L Anion Gap 12.9 (5-15) BUN 14 (7-18) mg/dL Creatinine 1.5 H (0.7-1.3) mg/dL Est Cr Clr Drug Dosing 46.87 mL/min Estimated GFR (MDRD) 47 (>60) mL/min BUN/Creatinine Ratio 9.3 L (14-18) Glucose 139 H (80-115) mg/dL Calcium 9.3 (8.5-10.1) mg/dL Total Bilirubin 0.7 (0.2-1.0) mg/dL AST 23 (15-37) U/L ALT 11 L (16-63) U/L Alkaline Phosphatase 55 (46-116) U/L Total Protein 7.5 (6.4-8.2) g/dl Albumin 3.4 (3.4-5.0) g/dl Globulin 4.1 gm/dL Albumin/Globulin Ratio 0.8 L (1-2) Lipase (73-393) U/L Urine Color (Yellow) Urine Appearance (Clear) Urine pH (5.0-8.0) Ur Specific [place] (1.005-1.030) Urine Protein (Negative) Urine Glucose (UA) (Negative) Urine Ketones (Negative) Urine Occult Blood (Negative) Urine Nitrite (Negative) Urine Bilirubin (Negative) Urine Urobilinogen (0.2-1.0) Ur Leukocyte Esterase (Negative) Urine RBC (0-5) /hpf Urine WBC (0-5) /hpf Ur Squamous Epith Cells (0-5) /hpf Urine Bacteria (FEW) /hpf Urine Mucus (FEW) /hpf 11/29/19 11/29/19 Range/Units 01:10 01:30 WBC (4.23-9.07) K/mm3 RBC (4.63-6.08) M/mm3 Hgb (13.7-17.5) gm/dl Hct (40.1-51.0) % MCV (79.0-92.2) fl MCH (25.7-32.2) pg MCHC (32.2-35.5) g/dl RDW Std Deviation (35.1-43.9) fL Plt Count (163-337) K/mm3 MPV (9.4-12.3) fl Neutrophils % (Manual) (40-60) % Band Neutrophils % (0-10) % Lymphocytes % (Manual) (20-40) % Atypical Lymphs % % Monocytes % (Manual) (2-10) % Eosinophils % (Manual) (0.8-7.0) % Basophils % (Manual) (0.2-1.2) Platelet Estimate RBC Morph Comment PT (9.7-12.0) SECONDS INR APTT (22-31) SECONDS Sodium (136-145) mEq/L Potassium (3.5-5.1) mEq/L Chloride (98-107) mEq/L Carbon Dioxide (21-32) mEq/L Anion Gap (5-15) BUN (7-18) mg/dL Creatinine (0.7-1.3) mg/dL Est Cr Clr Drug Dosing mL/min Estimated GFR (MDRD) (>60) mL/min BUN/Creatinine Ratio (14-18) Glucose (80-115) mg/dL Calcium (8.5-10.1) mg/dL Total Bilirubin (0.2-1.0) mg/dL AST (15-37) U/L ALT (16-63) U/L Alkaline Phosphatase (46-116) U/L Total Protein (6.4-8.2) g/dl Albumin (3.4-5.0) g/dl Globulin gm/dL Albumin/Globulin Ratio (1-2) Lipase 76 (73-393) U/L Urine Color Yellow (Yellow) Urine Appearance Clear (Clear) Urine pH 6.5 (5.0-8.0) Ur Specific [place] 1.020 (1.005-1.030) Urine Protein 1+ H (Negative) Urine Glucose (UA) Negative (Negative) Urine Ketones Negative (Negative) Urine Occult Blood 3+ H (Negative) Urine Nitrite Negative (Negative) Urine Bilirubin Negative (Negative) Urine Urobilinogen 1.0 (0.2-1.0) Ur Leukocyte Esterase Trace H (Negative) Urine RBC 20-30 H (0-5) /hpf Urine WBC 0-5 (0-5) /hpf Ur Squamous Epith Cells 0-5 (0-5) /hpf Urine Bacteria Rare (FEW) /hpf Urine Mucus Rare (FEW) /hpf Meds: Medications Generic Name Dose Route Start Last Admin Trade Name Freq PRN Reason Stop Dose Admin Potassium Chloride 10 meq/ 100 mls @ 100 mls/hr 11/29/19 02:15 11/29/19 02:32 Premix IV 100 mls/hr ASDIRECTED [facility] Administration Sodium Chloride 1,000 mls @ 75 mls/hr 11/29/19 02:30 11/29/19 02:32 Normal Saline IV 75 mls/hr ASDIRECTED [facility] Administration Discontinued Medications Generic Name Dose Route Start Last Admin Trade Name Lissy PRN Reason Stop Dose Admin Diatrizoate Meglum/Diatrizoate Sod 90 ml 11/29/19 03:20 11/29/19 03:40 Gastrografin 37% PO 11/29/19 03:21 90 ml ONETIME ONE Administration Lorazepam 1 mg 11/29/19 02:48 11/29/19 02:54 Ativan IVPUSH 11/29/19 02:49 1 mg ONETIME ONE Administration - Re-Assessments/Exams Free Text/Narrative Re-Assessment/Exam: 11/29/19 06:25 The patient has come in with issues of abdominal pain, overall discomfort, indwelling Martinez which is troubling him and is causing a little bit of bleeding , because of the abdominal discomfort a CT of the abdomen was done with findings that may represent "postoperative seroma, not acute hematoma, or abscess." 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 She felt that the patient does not have a problem at the operative site and is not infected but she is concerned about his not taking nourishment to any great degree his overall discomfort as well as a hyponatremia and hypokalemia. He is to be admitted in observation status to her service for further management. Departure - Departure Time of Disposition: 06:29 Disposition: Refer to Observation Condition: Fair Clinical Impression: Abdominal discomfort, H/O abdominal surgery, Hyponatremia, Hypokalemia, Indwelling Martinez catheter present - Discharge Information Referrals: John Sánchez MD [Primary Care Provider] - Forms: ED Department Discharge Sepsis Event Note - Evaluation Sepsis Screening Result: No Definite Risk - Focused Exam Vital Signs: Vital Signs Temp Pulse Resp BP Pulse Ox 11/29/19 00:04 37.1 C 92 19 156/89 H 94 L Date Exam was Performed: 11/29/19 Time Exam was Performed: 06:25 - My Orders Last 24 Hours: My Active Orders 11/29/19 01:30 CULTURE URINE [RM] Stat 11/29/19 02:11 Abdomen Pelvis wo Cont [CT] Stat 11/29/19 02:15 Potassium Chloride [KCl 10 MEQ in Water 100 ML] 10 meq Premix Bag 1 bag IV ASDIRECTED 11/29/19 02:30 Sodium Chloride 0.9% [Normal Saline] 1,000 ml IV ASDIRECTED - Assessment/Plan Last 24 Hours: My Active Orders 11/29/19 01:30 CULTURE URINE [RM] Stat 11/29/19 02:11 Abdomen Pelvis wo Cont [CT] Stat 11/29/19 02:15 Potassium Chloride [KCl 10 MEQ in Water 100 ML] 10 meq Premix Bag 1 bag IV ASDIRECTED 11/29/19 02:30 Sodium Chloride 0.9% [Normal Saline] 1,000 ml IV ASDIRECTED
[2019-11-29] MEDS ORDERED: Potassium Chloride 10 MEQ in Premix Bag 1 BAG IV SCH (02:15)
[2019-11-29] MEDS ORDERED: Sodium Chloride 0.9% 1,000 ML IV SCH (02:30)
[2019-11-29] MEDS ORDERED: LORazepam 2 MG/ML SDV IVPUSH ONE (02:48)
[2019-11-29] MEDS ORDERED: Diatrizoate Meglumine/Diatrizoate Sodium 37% 120 ML Bottle PO ONE (03:20)
--- NOTE | 2019-11-29 06:36 | PCM.HP.2 ---
H&P History of Present Illness - General Date of Service: 11/29/19 Source of Information: Patient, Provider History Limitations: Reports: No Limitations - History of Present Illness Initial Comments - Free Text/Narative: The patient is a 64 y/o male who is POD 6 status post laparoscopic ventral hernia repair who presents with worsening abdominal pain. He has been taking dilaudid and tylenol at home. He has had poor appetite and no bowel movement since surgery. Abdomen Pain Score (Numeric/FACES): 6 - Related Data Allergies/Adverse Reactions: Allergies Allergy/AdvReac Type Severity Reaction Status Date / Time No Known Allergies Allergy Verified 11/29/19 00:03 Home Medications: Home Meds Aspirin [Ecotrin EC] 81 mg PO DAILY 11/22/18 [History] Chlorthalidone 25 mg PO DAILY 11/17/19 [History] Clopidogrel [Plavix] 75 mg PO DAILY 11/17/19 [History] Metoprolol Succinate [Toprol XL] 12.5 mg PO DAILY 11/17/19 [History] Nitroglycerin [Nitrostat] 0.4 mg SL ASDIRECTED PRN 11/17/19 [History] amLODIPine Besylate [Amlodipine Besylate] 10 mg PO DAILY 11/17/19 [History] atorvaSTATin [Lipitor] 40 mg PO BEDTIME 11/17/19 [History] Potassium Chloride 20 meq PO DAILY #30 tablet.er 11/21/19 [Rx] HYDROmorphone [Dilaudid] 2 mg PO Q4H PRN #15 tab 11/26/19 [Rx] Tamsulosin [Flomax] 0.4 mg PO DAILY #20 cap.er 11/26/19 [Rx] Past Medical History HEENT History: Reports: Hard of Hearing, Impaired Vision, Other (See Below) Other HEENT History: upper/lower denture, wears glasses Cardiovascular History: Reports: Aneurysm, High Cholesterol, Hypertension Gastrointestinal History: Reports: Diverticulosis Genitourinary History: Reports: BPH, Chronic Renal Insuffiency Musculoskeletal History: Reports: Back Pain, Chronic Endocrine/Metabolic History: Reports: Obesity/BMI 30+ - Infectious Disease History Infectious Disease History: Reports: Chicken Pox, Measles, Mumps - Past Surgical History HEENT Surgical History: Reports: Myringotomy w Tube(s), Oral Surgery Cardiovascular Surgical History: Reports: AAA Repair GI Surgical History: Reports: Colon, Colostomy, Hernia, Abdominal Other GI Surgeries/Procedures: x3 Musculoskeletal Surgical History: Reports: Carpal Tunnel Social & Family History - Family History Family Medical History: Noncontributory - Tobacco Use Smoking Status *Q: Current Every Day Smoker - Caffeine Use Caffeine Use: Reports: Soda Other Caffeine Use: 4 cans/day - Living Situation & Occupation Living situation: Reports: , with Spouse, with Family (2 adult kids) Occupation: Retired H&P Review of Systems - Review of Systems: Review Of Systems: See Below HEENT: Reports: No Symptoms Pulmonary: Reports: No Symptoms Cardiovascular: Reports: No Symptoms Gastrointestinal: Reports: Abdominal Pain, Anorexia Genitourinary: Reports: Hematuria Musculoskeletal: Reports: No Symptoms Exam - Exam Exam: See Below - Vital Signs Vital Signs: Last Vital Signs Temp 37.1 C 11/29/19 00:04 Pulse 92 11/29/19 00:04 Resp 19 11/29/19 00:04 BP 156/89 H 11/29/19 00:04 Pulse Ox 94 L 11/29/19 00:04 Weight: 89.811 kg - Exam Quality Assessment: Supplemental Oxygen General: Alert HEENT: Conjunctiva Clear, EOMI Neck: Supple Lungs: Normal Respiratory Effort Cardiovascular: Regular Rate, Regular Rhythm GI/Abdominal Exam: Soft, Tender (appropriately tender to palpation), Other ( healing ecchymosis) Extremities: No Pedal Edema Skin: Warm, Dry, Intact, Wound (incisions well approximated, no erythema) Neurological: Cranial Nerves Intact Neuro Extensive - Mental Status: Normal Mood/Affect - Patient Data Lab Results Last 24 hrs: Laboratory Results - last 24 hr 11/29/19 11/29/19 11/29/19 Range/Units 01:10 01:10 01:10 WBC 7.56 (4.23-9.07) K/mm3 RBC 4.86 (4.63-6.08) M/mm3 Hgb 14.1 D (13.7-17.5) gm/dl Hct 39.9 L (40.1-51.0) % MCV 82.1 D (79.0-92.2) fl MCH 29.0 (25.7-32.2) pg MCHC 35.3 (32.2-35.5) g/dl RDW Std Deviation 37.7 (35.1-43.9) fL Plt Count 272 D (163-337) K/mm3 MPV 8.0 L (9.4-12.3) fl Neutrophils % (Manual) 70 H (40-60) % Band Neutrophils % 0 (0-10) % Lymphocytes % (Manual) 21 (20-40) % Atypical Lymphs % 0 % Monocytes % (Manual) 6 (2-10) % Eosinophils % (Manual) 2 (0.8-7.0) % Basophils % (Manual) 1 (0.2-1.2) Platelet Estimate Adequate RBC Morph Comment Normal PT 10.1 (9.7-12.0) SECONDS INR 0.93 APTT 29 (22-31) SECONDS Sodium 128 L (136-145) mEq/L Potassium 2.9 L (3.5-5.1) mEq/L Chloride 90 L (98-107) mEq/L Carbon Dioxide 28 (21-32) mEq/L Anion Gap 12.9 (5-15) BUN 14 (7-18) mg/dL Creatinine 1.5 H (0.7-1.3) mg/dL Est Cr Clr Drug Dosing 46.87 mL/min Estimated GFR (MDRD) 47 (>60) mL/min BUN/Creatinine Ratio 9.3 L (14-18) Glucose 139 H (80-115) mg/dL Calcium 9.3 (8.5-10.1) mg/dL Total Bilirubin 0.7 (0.2-1.0) mg/dL AST 23 (15-37) U/L ALT 11 L (16-63) U/L Alkaline Phosphatase 55 (46-116) U/L Total Protein 7.5 (6.4-8.2) g/dl Albumin 3.4 (3.4-5.0) g/dl Globulin 4.1 gm/dL Albumin/Globulin Ratio 0.8 L (1-2) Lipase (73-393) U/L Urine Color (Yellow) Urine Appearance (Clear) Urine pH (5.0-8.0) Ur Specific [place] (1.005-1.030) Urine Protein (Negative) Urine Glucose (UA) (Negative) Urine Ketones (Negative) Urine Occult Blood (Negative) Urine Nitrite (Negative) Urine Bilirubin (Negative) Urine Urobilinogen (0.2-1.0) Ur Leukocyte Esterase (Negative) Urine RBC (0-5) /hpf Urine WBC (0-5) /hpf Ur Squamous Epith Cells (0-5) /hpf Urine Bacteria (FEW) /hpf Urine Mucus (FEW) /hpf 11/29/19 11/29/19 Range/Units 01:10 01:30 WBC (4.23-9.07) K/mm3 RBC (4.63-6.08) M/mm3 Hgb (13.7-17.5) gm/dl Hct (40.1-51.0) % MCV (79.0-92.2) fl MCH (25.7-32.2) pg MCHC (32.2-35.5) g/dl RDW Std Deviation (35.1-43.9) fL Plt Count (163-337) K/mm3 MPV (9.4-12.3) fl Neutrophils % (Manual) (40-60) % Band Neutrophils % (0-10) % Lymphocytes % (Manual) (20-40) % Atypical Lymphs % % Monocytes % (Manual) (2-10) % Eosinophils % (Manual) (0.8-7.0) % Basophils % (Manual) (0.2-1.2) Platelet Estimate RBC Morph Comment PT (9.7-12.0) SECONDS INR APTT (22-31) SECONDS Sodium (136-145) mEq/L Potassium (3.5-5.1) mEq/L Chloride (98-107) mEq/L Carbon Dioxide (21-32) mEq/L Anion Gap (5-15) BUN (7-18) mg/dL Creatinine (0.7-1.3) mg/dL Est Cr Clr Drug Dosing mL/min Estimated GFR (MDRD) (>60) mL/min BUN/Creatinine Ratio (14-18) Glucose (80-115) mg/dL Calcium (8.5-10.1) mg/dL Total Bilirubin (0.2-1.0) mg/dL AST (15-37) U/L ALT (16-63) U/L Alkaline Phosphatase (46-116) U/L Total Protein (6.4-8.2) g/dl Albumin (3.4-5.0) g/dl Globulin gm/dL Albumin/Globulin Ratio (1-2) Lipase 76 (73-393) U/L Urine Color Yellow (Yellow) Urine Appearance Clear (Clear) Urine pH 6.5 (5.0-8.0) Ur Specific [place] 1.020 (1.005-1.030) Urine Protein 1+ H (Negative) Urine Glucose (UA) Negative (Negative) Urine Ketones Negative (Negative) Urine Occult Blood 3+ H (Negative) Urine Nitrite Negative (Negative) Urine Bilirubin Negative (Negative) Urine Urobilinogen 1.0 (0.2-1.0) Ur Leukocyte Esterase Trace H (Negative) Urine RBC 20-30 H (0-5) /hpf Urine WBC 0-5 (0-5) /hpf Ur Squamous Epith Cells 0-5 (0-5) /hpf Urine Bacteria Rare (FEW) /hpf Urine Mucus Rare (FEW) /hpf Result Diagrams: 11/29/19 01:10 11/29/19 01:10 Sepsis Event Note - Evaluation Sepsis Screening Result: No Definite Risk - Focused Exam Vital Signs: Vital Signs Temp Pulse Resp BP Pulse Ox 11/29/19 00:04 37.1 C 92 19 156/89 H 94 L Date Exam was Performed: 11/29/19 Time Exam was Performed: 06:28 *Q Meaningful Use (ADM) - VTE Risk Assess *Q Each Risk Factor Represents 2 Points: Age 60 - 74 Years, Laparoscopic surgery greater than 45 minutes Total Score 2 Point Risk Factors: 4 Problem List Initiated/Reviewed/Updated: Yes Orders Last 24hrs: Active Orders 24 hr Category Date Time Status Abdomen Pelvis wo Cont [CT] Stat Exams 11/29/19 02:11 Taken CULTURE URINE [RM] Stat Lab 11/29/19 01:30 Received Potassium Chloride [KCl 10 MEQ in Water 100 ML] 10 meq Med 11/29/19 02:15 Active Premix Bag 1 bag IV ASDIRECTED Sodium Chloride 0.9% [Normal Saline] 1,000 ml Med 11/29/19 02:30 Active IV ASDIRECTED Medication Orders Potassium Chloride 10 meq/ (Premix) 100 mls @ 100 mls/hr IV ASDIRECTED [facility] Last Admin: 11/29/19 02:32 Dose: 100 mls/hr Sodium Chloride (Normal Saline) 1,000 mls @ 75 mls/hr IV ASDIRECTED [facility] Last Admin: 11/29/19 02:32 Dose: 75 mls/hr Assessment/Plan Comment:: 64 y/o male with recent hernia repair, now with hyponatremia and hypokalemia and poor pain control - Continue NS at 125 - regular diet - IV dilaudid and PO tylenol - continue swann - ambulate ad lalo - incentive spirometer - repeat BMP and electrolytes in 6-8 hours Katie Gomez MD General surgery - Mortality Measure Prognosis:: Good
[2019-11-29] MEDS ORDERED: oxyCODONE 5 MG Tab PO PRN (06:39)
[2019-11-29] MEDS ORDERED: Docusate Sodium 100 MG Cap PO PRN (06:39)
[2019-11-29] MEDS ORDERED: Ondansetron 4 MG Tab.DIS PO PRN (06:39)
[2019-11-29] MEDS ORDERED: Nitroglycerin 0.4 MG Tab.SL SL PRN (06:43)
[2019-11-29] MEDS ORDERED: HYDROmorphone 0.5 MG/0.5 ML Syringe IVPUSH PRN (06:46)
[2019-11-29] MEDS ORDERED: Heparin Sodium 5,000 Units/ML Vial SUBCUT SCH (08:00)
[2019-11-29] MEDS: Acetaminophen 325 MG Tab PO SCH ×3 (08:36→16:51)
--- NOTE | 2019-11-29 08:59 | CT ---
CT abdomen and pelvis Technique: Multiple axial sections were obtained from above the dome of the diaphragm inferiorly through the pubic symphysis. Oral contrast is seen. No IV contrast was utilized. Comparison: Prior CT abdomen and pelvis study of 11/21/[address] study of 08/08/17.. Findings: 2 small nodules are noted within the right middle lobe which are stable from prior CT study and therefore are felt to be benign. Small amount of free air is noted. Small amount of pneumomediastinum is also seen. Spleen appears normal in size. No intraparenchymal abnormality is noted within the liver. Incidental fat is noted next to the ligamentum teres fissure. Increased density within the gallbladder most likely representing sludge and vicarious excretion of contrast. Right kidney is somewhat atrophied. Left kidney shows no hydronephrosis or mass. Pancreas shows no discrete abnormality. Aortoiliac graft is seen. Martinez catheter noted within the bladder. Fluid-filled structure noted within the left anterior abdominal wall containing some air. This finding measures approximately 9.6 cm in size and uncertain if this is due to postoperative seroma or abdominal wall abscess. There is some thickening within the adjacent abdominal wall compatible with previous surgery. Bulging of the rectus sheath is again noted which is stable. No fluid within the abdomen is seen. No pelvic mass or adenopathy is noted. Appendix not visualized with certainty. Bone window settings were reviewed which shows scattered degenerative change throughout the spine. Impression: 1. 9.6 cm fluid and air-filled structure within the left anterior abdominal wall either due to postop seroma or abscess. 2. Postoperative change within the left anterior abdominal wall and adjacent muscles. 3. Small amount of free air as well as small amount of pneumomediastinum presumably due to previous surgery. 4. No acute intra-abdominal or intrapelvic abnormality is appreciated. Diagnostic code #3 This report was dictated in MDT I agree with preliminary report from [facility], finalized on 11/29/19, 5:10 AM Central Daylight Time
[2019-11-29] MEDS ORDERED: amLODIPine 10 MG Tab PO SCH (09:00)
[2019-11-29] MEDS ORDERED: Potassium Chloride 10 MEQ Tab.ER PO SCH (09:00)
[2019-11-29] MEDS ORDERED: Metoprolol Succinate 25 MG Tab.ER PO SCH (09:00)
[2019-11-29] MEDS ORDERED: Clopidogrel 75 MG Tab PO SCH (09:00)
[2019-11-29] MEDS ORDERED: Aspirin 81 MG Tab.EC PO SCH (09:00)
[2019-11-29] MEDS ORDERED: Chlorthalidone 25 MG Tab PO SCH (09:00)
[2019-11-29] MEDS ORDERED: Tamsulosin 0.4 MG Cap.ER PO SCH (09:00)
[2019-11-29] MEDS ORDERED: Potassium Chloride 20 MEQ Tab.ER PO ONE (15:01)
--- NOTE | 2019-11-29 15:17 | PCM.DCSUM1 ---
Discharge Summary - Hospital Course HPI Initial Comments: Pt admitted for postoperative pain and electrolyte abnormalities. He was admitted to observation and had IVF with PO potassium in addition. He had ROBF in the hospital and showed some normalization in his lab values. He was discharged home with instruction for close follow up with his PCP. Diagnosis: Stroke: No Modified [place] Scale: No Signif.Disability Despite Sympt.Able to Carry Out Usual Act./Duties Modified [place] Scale Score: 1 - Discharge Data Discharge Date: 11/29/19 Discharge Disposition: Home, Self-Care 01 Condition: Good - Referral to Home Health Primary Care Physician: John Sánchez MD - Patient Instructions Diet: Regular Diet as Tolerated Diet, Other: eat salty foods Activity: As Tolerated Activity, Other: keep previous activity instructions you were given after surgery Showering/Bathing: May Shower Notify Provider of: Fever, Increased Pain, Swelling and Redness, Nausea and/or Vomiting Other/Special Instructions: please take tylenol around the clock for the next three days at least. You may take Dilaudid OR Oxycodone. Do not take both at the same time. You may safely take tylenol with the other medications. - Discharge Plan *PRESCRIPTION DRUG MONITORING PROGRAM REVIEWED*: Not Applicable *COPY OF PRESCRIPTION DRUG MONITORING REPORT IN PATIENT SANDEEP: Not Applicable Prescriptions/Med Rec: Acetaminophen [Tylenol] 650 mg PO Q4H 5 Days #70 tablet Ondansetron [Zofran ODT] 4 mg PO Q6H PRN 5 Days #12 tab.dis PRN Reason: nausea, able to take PO oxyCODONE 5 mg PO Q4H PRN 14 Days #12 tablet PRN Reason: Pain (Moderate 4-6) Home Medications: Home Meds Aspirin [Ecotrin EC] 81 mg PO DAILY 11/22/18 [History] Chlorthalidone 25 mg PO DAILY 11/17/19 [History] Clopidogrel [Plavix] 75 mg PO DAILY 11/17/19 [History] Metoprolol Succinate [Toprol XL] 12.5 mg PO DAILY 11/17/19 [History] Nitroglycerin [Nitrostat] 0.4 mg SL ASDIRECTED PRN 11/17/19 [History] amLODIPine Besylate [Amlodipine Besylate] 10 mg PO DAILY 11/17/19 [History] atorvaSTATin [Lipitor] 40 mg PO BEDTIME 11/17/19 [History] Potassium Chloride 20 meq PO DAILY #30 tablet.er 11/21/19 [Rx] HYDROmorphone [Dilaudid] 2 mg PO Q4H PRN #15 tab 11/26/19 [Rx] Tamsulosin [Flomax] 0.4 mg PO DAILY #20 cap.er 11/26/19 [Rx] Acetaminophen [Tylenol] 650 mg PO Q4H 5 Days #70 tablet 11/29/19 [Rx] Ondansetron [Zofran ODT] 4 mg PO Q6H PRN 5 Days #12 tab.dis 11/29/19 [Rx] oxyCODONE 5 mg PO Q4H PRN 14 Days #12 tablet 11/29/19 [Rx] Forms: ED Department Discharge Referrals: John Sánchez MD [Primary Care Provider] - (Follow up on sunday12/01/19 for electrolyte abnormalities) - Discharge Summary/Plan Comment DC Time >30 min.: No - Patient Data Vitals - Most Recent: Last Vital Signs Temp 36.6 C 11/29/19 12:44 Pulse 73 11/29/19 12:44 Resp 18 11/29/19 12:44 BP 135/85 11/29/19 12:44 Pulse Ox 93 L 11/29/19 12:44 Weight - Most Recent: 89.613 kg I&O - Last 24 hours: Intake & Output 11/29/19 11/29/19 11/29/19 06:59 14:59 22:59 Output Total 150 Balance -150 Lab Results - Last 24 hrs: Laboratory Results - last 24 hr 11/29/19 11/29/19 11/29/19 Range/Units 01:10 01:10 01:10 WBC 7.56 (4.23-9.07) K/mm3 RBC 4.86 (4.63-6.08) M/mm3 Hgb 14.1 D (13.7-17.5) gm/dl Hct 39.9 L (40.1-51.0) % MCV 82.1 D (79.0-92.2) fl MCH 29.0 (25.7-32.2) pg MCHC 35.3 (32.2-35.5) g/dl RDW Std Deviation 37.7 (35.1-43.9) fL Plt Count 272 D (163-337) K/mm3 MPV 8.0 L (9.4-12.3) fl Neutrophils % (Manual) 70 H (40-60) % Band Neutrophils % 0 (0-10) % Lymphocytes % (Manual) 21 (20-40) % Atypical Lymphs % 0 % Monocytes % (Manual) 6 (2-10) % Eosinophils % (Manual) 2 (0.8-7.0) % Basophils % (Manual) 1 (0.2-1.2) Platelet Estimate Adequate RBC Morph Comment Normal PT 10.1 (9.7-12.0) SECONDS INR 0.93 APTT 29 (22-31) SECONDS Sodium 128 L (136-145) mEq/L Potassium 2.9 L (3.5-5.1) mEq/L Chloride 90 L (98-107) mEq/L Carbon Dioxide 28 (21-32) mEq/L Anion Gap 12.9 (5-15) BUN 14 (7-18) mg/dL Creatinine 1.5 H (0.7-1.3) mg/dL Est Cr Clr Drug Dosing 46.87 mL/min Estimated GFR (MDRD) 47 (>60) mL/min BUN/Creatinine Ratio 9.3 L (14-18) Glucose 139 H (80-115) mg/dL Calcium 9.3 (8.5-10.1) mg/dL Total Bilirubin 0.7 (0.2-1.0) mg/dL AST 23 (15-37) U/L ALT 11 L (16-63) U/L Alkaline Phosphatase 55 (46-116) U/L Total Protein 7.5 (6.4-8.2) g/dl Albumin 3.4 (3.4-5.0) g/dl Globulin 4.1 gm/dL Albumin/Globulin Ratio 0.8 L (1-2) Lipase (73-393) U/L Urine Color (Yellow) Urine Appearance (Clear) Urine pH (5.0-8.0) Ur Specific [place] (1.005-1.030) Urine Protein (Negative) Urine Glucose (UA) (Negative) Urine Ketones (Negative) Urine Occult Blood (Negative) Urine Nitrite (Negative) Urine Bilirubin (Negative) Urine Urobilinogen (0.2-1.0) Ur Leukocyte Esterase (Negative) Urine RBC (0-5) /hpf Urine WBC (0-5) /hpf Ur Squamous Epith Cells (0-5) /hpf Urine Bacteria (FEW) /hpf Urine Mucus (FEW) /hpf 11/29/19 11/29/19 11/29/19 Range/Units 01:10 01:30 14:00 WBC (4.23-9.07) K/mm3 RBC (4.63-6.08) M/mm3 Hgb (13.7-17.5) gm/dl Hct (40.1-51.0) % MCV (79.0-92.2) fl MCH (25.7-32.2) pg MCHC (32.2-35.5) g/dl RDW Std Deviation (35.1-43.9) fL Plt Count (163-337) K/mm3 MPV (9.4-12.3) fl Neutrophils % (Manual) (40-60) % Band Neutrophils % (0-10) % Lymphocytes % (Manual) (20-40) % Atypical Lymphs % % Monocytes % (Manual) (2-10) % Eosinophils % (Manual) (0.8-7.0) % Basophils % (Manual) (0.2-1.2) Platelet Estimate RBC Morph Comment PT (9.7-12.0) SECONDS INR APTT (22-31) SECONDS Sodium 130 L (136-145) mEq/L Potassium 3.1 L (3.5-5.1) mEq/L Chloride 94 L (98-107) mEq/L Carbon Dioxide 27 (21-32) mEq/L Anion Gap 12.1 (5-15) BUN 13 (7-18) mg/dL Creatinine 1.4 H (0.7-1.3) mg/dL Est Cr Clr Drug Dosing 51.90 mL/min Estimated GFR (MDRD) 51 (>60) mL/min BUN/Creatinine Ratio 9.3 L (14-18) Glucose 130 H (80-115) mg/dL Calcium 9.0 (8.5-10.1) mg/dL Total Bilirubin (0.2-1.0) mg/dL AST (15-37) U/L ALT (16-63) U/L Alkaline Phosphatase (46-116) U/L Total Protein (6.4-8.2) g/dl Albumin (3.4-5.0) g/dl Globulin gm/dL Albumin/Globulin Ratio (1-2) Lipase 76 (73-393) U/L Urine Color Yellow (Yellow) Urine Appearance Clear (Clear) Urine pH 6.5 (5.0-8.0) Ur Specific [place] 1.020 (1.005-1.030) Urine Protein 1+ H (Negative) Urine Glucose (UA) Negative (Negative) Urine Ketones Negative (Negative) Urine Occult Blood 3+ H (Negative) Urine Nitrite Negative (Negative) Urine Bilirubin Negative (Negative) Urine Urobilinogen 1.0 (0.2-1.0) Ur Leukocyte Esterase Trace H (Negative) Urine RBC 20-30 H (0-5) /hpf Urine WBC 0-5 (0-5) /hpf Ur Squamous Epith Cells 0-5 (0-5) /hpf Urine Bacteria Rare (FEW) /hpf Urine Mucus Rare (FEW) /hpf Med Orders - Current: Current Medications Acetaminophen (Tylenol) 650 mg PO Q4H [facility] Last Admin: 11/29/19 12:52 Dose: 650 mg Amlodipine Besylate (Norvasc) 10 mg PO DAILY [facility] Last Admin: 11/29/19 08:37 Dose: 10 mg Aspirin (Halfprin) 81 mg PO DAILY [facility] Last Admin: 11/29/19 08:37 Dose: 81 mg Chlorthalidone (Chlorthalidone) 25 mg PO DAILY [facility] Last Admin: 11/29/19 08:37 Dose: 25 mg Clopidogrel Bisulfate (Plavix) 75 mg PO DAILY [facility] Last Admin: 11/29/19 08:37 Dose: 75 mg Docusate Sodium (Colace) 100 mg PO BID PRN PRN Reason: Constipation Last Admin: 11/29/19 08:36 Dose: 100 mg Heparin Sodium (Porcine) (Heparin Sodium) 5,000 units SUBCUT Q8H [facility] Last Admin: 11/29/19 08:38 Dose: 5,000 units Hydromorphone HCl (Dilaudid) 0.5 mg IVPUSH Q3H PRN PRN Reason: breakthrough pain Sodium Chloride (Normal Saline) 1,000 mls @ 75 mls/hr IV ASDIRECTED [facility] Last Admin: 11/29/19 02:32 Dose: 75 mls/hr Metoprolol Succinate (Toprol Xl) 12.5 mg PO DAILY [facility] Last Admin: 11/29/19 08:37 Dose: 12.5 mg Nitroglycerin (Nitrostat) 0.4 mg SL ASDIRECTED PRN PRN Reason: Chest Pain Ondansetron HCl (Zofran Odt) 4 mg PO Q6H PRN PRN Reason: nausea, able to take PO Oxycodone HCl (Oxycodone) 5 mg PO Q4H PRN PRN Reason: Pain (moderate 4-6) Last Admin: 11/29/19 08:38 Dose: 5 mg Potassium Chloride (Klor-Con 10) 20 meq PO DAILY [facility] Last Admin: 11/29/19 08:37 Dose: 20 meq Rosuvastatin Calcium (Crestor) 10 mg PO BEDTIME [facility] Tamsulosin HCl (Flomax) 0.4 mg PO DAILY [facility] Last Admin: 11/29/19 08:36 Dose: 0.4 mg Discontinued Medications Diatrizoate Meglum/Diatrizoate Sod (Gastrografin 37%) 90 ml PO ONETIME ONE Stop: 11/29/19 03:21 Last Admin: 11/29/19 03:40 Dose: 90 ml Potassium Chloride 10 meq/ (Premix) 100 mls @ 100 mls/hr IV ASDIRECTED [facility] Last Admin: 11/29/19 02:32 Dose: 100 mls/hr Lorazepam (Ativan) 1 mg IVPUSH ONETIME ONE Stop: 11/29/19 02:49 Last Admin: 11/29/19 02:54 Dose: 1 mg Potassium Chloride (Klor-Con M20) 40 meq PO ONETIME ONE Stop: 11/29/19 15:02
[2019-11-29] MEDS ORDERED: Rosuvastatin 10 MG Tab PO SCH (21:00)
== END 2019-11-29 16:20 | disposition home or self-care (01) ==
LOC: JD.ED 23:53 → JD.MS 11-29 06:39
PROVIDERS: ADMIT Surgery; ATTEND Surgery
DX: G89.18 Other acute postprocedural pain (principal); E87.6 Hypokalemia; E87.1 Hypo-osmolality and hyponatremia; E78.00 Pure hypercholesterolemia, unspecified; I12.9 Hypertensive chronic kidney disease with stage 1 through stage 4 chronic kidney disease, or unspecified chronic kidney disease; N18.9 Chronic kidney disease, unspecified; E66.9 Obesity, unspecified; F17.200 Nicotine dependence, unspecified, uncomplicated; N40.0 Benign prostatic hyperplasia without lower urinary tract symptoms; Z96.0 Presence of urogenital implants; Z79.899 Other long term (current) drug therapy; Z79.82 Long term (current) use of aspirin; Z68.30 Body mass index [BMI] 30.0-30.9, adult; Z98.890 Other specified postprocedural states
CPT/HCPCS: 36415; 74176; 80048; 80053; 81001; 83690; 85007; 85027; 85610; 85730; 87086; 96361; 96365; 96372; 96375; 99285; A9270; G0378; J1644; J2060; J3480; J7030; Q9963